=== PATIENT | female | born 1940 | race Caucasian/White ===

== ENCOUNTER → 2016-08-22 | Outpatient (CLI) | payer MEDICARE, OTHER ==
[2015-08-23 13:50] VITALS: BP 150/55
[~2016-08-22] MED LIST: ASPI-482 PO; CALC500T27 PO; CARV3.122 PO; CHOL100013 PO; GABA-586 PO; SIMV20TA3 PO
--- NOTE | 2016-08-22 18:26 | RESP ---
DATE OF SERVICE: 08/22/2016 ATTENDING PHYSICIAN: Dr. Iverson. The patient's FVC was 2.74, which is 85% predicted, FEV1 1.24, which is 51% predicted, the FEV1/FVC ratio was significantly reduced. There was 13% improvement in FVC and 11% improvement in FEV1 post-bronchodilator. Lung volume showed total lung capacity 146% predicted and residual volume 254% predicted. Diffusion capacity 73% predicted. IMPRESSION: 1. Moderate obstructive airway disease. 2. Good response to bronchodilators. 3. Lung volumes consistent with air trapping and hyperinflation. 4. Mildly reduced diffusion capacity. KEEGAN GUERRERO MD DR: VICK/jaylyn JOB#: [id number] / [id number] RAMYA Miranda MD
== END | disposition home or self-care (01) ==
LOC: PF 10:48
PROVIDERS: ATTEND Internal Medicine Pulmonary Disease
DX: R06.02 Shortness of breath (principal)
CPT/HCPCS: 94060; 94729

== ENCOUNTER 2016-08-30 09:51 | Outpatient (CLI) | payer MEDICARE, OTHER ==
[~2016-08-30] VITALS: Ht 172.7 cm; Wt 82.6 kg
[2016-08-30] VITALS (13 sets, daily range): BP systolic 110–153; BP diastolic 52–93
[2016-08-30 10:39] LABS: INR 0.9 (0.8-1.1)
[2016-08-30 10:58] LABS: BASO # 0.1 x10^3/uL (0.0-0.2); BASO % 1 % (0-3); EOS % 5 % (0-3); HEMATOCRIT 47.1 % (36.0-47.0); HEMOGLOBIN 16.4 g/dL (12.0-15.5); LYMPH # 1.9 x10^3/uL (1.0-4.8); LYMPH % 23 % (24-48); MEAN CORPUSCULAR HEMOGLOBIN 29 pg (25-35); MEAN CORPUSCULAR HGB CONC 35 g/dL (31-37); MEAN CORPUSCULAR VOLUME 84 fL (79-100); MONO % 5 % (0-9); NEUT % 67 % (31-73); PLATELET COUNT 260 x10^3/uL (140-400); RED BLOOD COUNT 5.63 x10^6/uL (3.50-5.40); RED CELL DISTRIBUTION WIDTH 14.4 % (11.5-14.5); WHITE BLOOD COUNT 8.6 x10^3/uL (4.0-11.0)
[2016-08-30] MEDS ORDERED: LIDOCAINE 1% / SOD BICARB 8.4% 20 ML VIAL. IJ ONE ×2 (11:12→11:30)
[2016-08-30] MEDS ORDERED: FLUMAZENIL 0.5 MG/5 ML VIAL. IV ONE (11:18)
[2016-08-30] MEDS ORDERED: NALOXONE 0.4 MG/ML VIAL. ONE (11:18)
[2016-08-30] MEDS ORDERED: MIDAZOLAM HCL/PF 2 MG/2 ML VIAL. ONE (11:19)
[2016-08-30] MEDS ORDERED: fentaNYL PF VIAL 100 MCG/2 ML VIAL ONE (11:19)
[2016-08-30] MEDS ORDERED: MIDAZOLAM HCL/PF 2 MG/2 ML VIAL. IV ONE (11:30)
[2016-08-30] MEDS ORDERED: fentaNYL PF VIAL 100 MCG/2 ML VIAL IV ONE (11:30)
--- NOTE | 2016-08-30 12:10 | PDOC ---
MODERATE SEDATION ASSESSMENT RISKS/ALTERNATIVES Risks/Alternatives Risks and alternatives of this type of sedation and procedure discussed with: RISK/ALTERNATIVES: Patient H & P ON CHART H & P H & P on chart and reviewed for co-morbid conditions and appropriate labs. H&P ON CHART: Yes STATUS PREG STATUS ASSESSED: N/A MEDS/ALLERGIES REVIEWED Meds/Allergies Reviewed Medications and Allergies including time and route of recently administered narcotics and sedatives. MEDS/ALLERGIES REVIEWED: Yes ASA RATING ASA RATING: II AIRWAY ASSESSMENT Airway Assessment Airway patency, oral function limitations, presence of caps, crowns, dentures, partials, and ability to extend neck assessed. AIRWAY ASSESSMENT: Yes MALLAMPATI SCORE MALLAMPATI SCORE: II PRE-SEDATION ASSESSMENT PRE-SEDATION ASSESSMENT: Yes SIGIFREDO LAWRENCE MD August 30, 2016 12:10
--- NOTE | 2016-08-30 12:14 | PDOC1 ---
History and Physical Date of Procedure Date of Admission 08/30/[address] guided right apical spiculated lung mass Indication Indication 76 YO female smoker with a 3 cm spiculated, noncalcific right apical lung mass Past Medical History Past Medical History See Nursing Pre Procedure PMH Past Surgical History Past Surgical History See Nursing Pre Procedure PSH Current Medications Current Medications Current Medications Lidocaine/Sodium Bicarbonate (Buffered Lidocaine 1%) 20 ml STK-MED ONCE IJ ; Start 08/30/16 at 11:12; Stop 08/30/16 at 11:13; Status DC Naloxone HCl (Narcan) 0.4 mg STK-MED ONCE .ROUTE ; Start 08/30/16 at 11:18; Stop 08/30/16 at 11:19; Status DC Flumazenil (Romazicon) 0.5 mg STK-MED ONCE IV ; Start 08/30/16 at 11:18; Stop at 11:19; Status DC Fentanyl Citrate (Fentanyl 2ml Vial) 100 mcg STK-MED ONCE .ROUTE ; Start at 11:19; Stop 08/30/16 at 11:20; Status DC Midazolam HCl (Versed) 2 mg STK-MED ONCE .ROUTE ; Start 08/30/16 at 11:19; Stop 08/30/16 at 11:20; Status DC Lidocaine/Sodium Bicarbonate (Buffered Lidocaine 1%) 20 ml 1X ONCE IJ Last administered on 08/30/16 12:03; Start 08/30/16 at 11:30; Stop 08/30/16 at 11:33 ; Status DC Midazolam HCl (Versed) 2 mg 1X ONCE IV Last administered on 08/30/16 12:02; Start 08/30/16 at 11:30; Stop 08/30/16 at 11:33; Status DC Fentanyl Citrate (Fentanyl 2ml Vial) 100 mcg 1X ONCE IV Last administered on 12:03; Start 08/30/16 at 11:30; Stop 08/30/16 at 11:33; Status DC Active Scripts Active Reported Calcium (Calcium Carbonate) 500 Mg Tablet 500 Mg PO DAILY Vitamin D (Cholecalciferol (Vitamin D3)) 1,000 Unit Capsule 1 Cap PO DAILY Aspir 81 (Aspirin) 81 Mg Tablet.dr 1 Tab PO DAILY Gabapentin 300 Mg Capsule 600 Mg PO TID Carvedilol 3.125 Mg Tablet 1 Tab PO BID Simvastatin 20 Mg Tablet 1 Tab PO QHS Allergies Allergies: Coded Allergies: No Known Drug Allergies (Unverified , 07/03/13) Physical Exam Vital Signs Vital Signs Date Time Temp Pulse Resp B/P (MAP) Pulse Ox O2 Delivery O2 Flow Rate FiO2 08/30/16 12:04 58 14 91 Room Air 08/30/16 10:38 98.3 140/64 (89) 98.3 Lungs: Clear to auscultation Heart: Regular rate Psych/Mental Status: Mental status NL Diagnostic Data/Imaging Images [place] CT chest from 08/10/16 reviewed. Assessment Assessment 76 YO female smoker with spiculated right apical lung mass---? bronchogenic carcinoma Problems: Plan Plan CT guided right apical lung mass biopsy SIGIFREDO LAWRENCE MD August 30, 2016 12:14
--- NOTE | 2016-08-30 12:18 | PDOC ---
Exam Hot Packer Hot Packer Ade Compounding Scaler Compounding Scaler Paulina Abraham Pre-Procedure Diagnosis Pre-Procedure Diagnosis 76 YO female smoker with 3 cm, spiculated, noncalcific right apical lung mass--- ? bronchogenic carcinoma Post-Procedure Diagnosis Post-Procedure Diagnosis Same Procedure Performed Procedure Performed CT guided rt apical lung mass bx Type of Anesthesia Type of Anesthesia Local + Mod sedation Estimated Blood Loss EBL: Trace Specimens Specimans 4 18G core bx to path in formalin Condition of Patient Condition of Patient Stable. No apparent complication. No immediate post bx Ptx. Disposition Disposition From IR/CT to CVOBS for recovery. 1 hr post bx Insp/Exp CXR requested. May discharge home post recovery, if no Ptx or other problems. F/u with referring MD. Full report to follow. SIGIFREDO LAWRENCE MD August 30, 2016 12:18
--- NOTE | 2016-08-30 13:30 | RAD ---
Portable chest, 2 views, 08/30/2016: History: Post lung biopsy evaluation AP inspiration and expiration views of the chest were obtained and compared to a study from 05/13/2009. There is an irregular mass in the right apical region, biopsied earlier today. There is a small right apical pneumothorax. No pleural fluid is seen. The heart size is normal. There is calcific plaquing of the aorta and coronary arteries. There is minimal atelectasis or scarring in the left base. A surgical plate and screws is evident in the lower cervical spine. IMPRESSION: 1. Right apical mass. 2. Small right pneumothorax status post right lung biopsy.
--- NOTE | 2016-08-30 14:07 | RAD ---
Indication post lung biopsy. A single view of the chest was obtained at 1400 and is compared to a study one hour earlier. Small right apical pneumothorax persists similar to the previous exam. Known parenchymal mass is noted. A significant change in the appearance of the chest is not seen. IMPRESSION: Persistent small right apical pneumothorax similar to the study one hour earlier
--- NOTE | 2016-08-31 07:13 | RAD ---
CT-guided right lung biopsy Indication: 76-year-old female smoker with large, spiculated, noncalcified right apical lung mass. Probable bronchogenic carcinoma. CT-guided lung biopsy has been requested by pulmonary. Anesthesia: 27 minutes moderate sedation was provided utilizing a total of 1.5 mg Versed and 75 mcg fentanyl, IV. The patient was appropriately monitored by a qualified independent observer throughout the time of moderate sedation. Consent: The procedure was explained in its entirety to the patient and/or the patient's designated warehouse representative by a member of the treatment team. This included a discussion of risks and benefits and acceptable alternatives to the procedure, as well as expected consequences of no treatment at all. Discussion of risks included, but was not limited to, those that are most frequent and those that are rare, but possibly severe or life-threatening, as well as the possibility of unforeseen complications. Procedure: Informed consent was obtained from the patient. She was placed supine on the CT scanner. Preliminary noncontrast CT images confirmed the presence of a 3 cm, spiculated, noncalcified right apical lung mass, with surrounding emphysematous changes. A right anterolateral skin site suitable for CT-guided biopsy was selected and marked. That area was prepped and draped in the usual sterile fashion. Moderate sedation was provided with IV Versed and fentanyl. Using aseptic technique, local anesthesia, and CT guidance, a 17-gauge guide needle was successfully introduced into the right apical lung mass. A total of 4 18-gauge core biopsy samples were obtained. Biopsy material was submitted in formalin to pathology. The biopsy guide needle was removed and a sterile dressing was applied. Patient tolerated the procedure well. Completion CT images revealed a tiny, asymptomatic postbiopsy right apical pneumothorax, as well as postbiopsy blood contained within a right apical bleb. Impression: 1. Successful CT-guided biopsy of right apical spiculated, noncalcified lung mass, as described. 2. Very tiny, asymptomatic postbiopsy apical pneumothorax. 1 hour and 2 hour postbiopsy inspiration/expiration chest x-rays will be obtained in CV observation to exclude pneumothorax progression, prior to patient discharge. RS Compliance Statement: One or more of the following individualized dose reduction techniques was utilized for this procedure: 1. Automated exposure control. 2. Adjustment of MA and/or KV according to patient size. 3. Iterative reconstruction technique.
== END 2016-08-30 14:00 | disposition home or self-care (01) ==
LOC: INTRAD 09:51
PROVIDERS: ATTEND Internal Medicine Pulmonary Disease
DX: R91.8 Other nonspecific abnormal finding of lung field (principal); F17.200 Nicotine dependence, unspecified, uncomplicated
CPT/HCPCS: 32405; 36415; 71010; 71035; 77012; 85027; 85610; J2250; J3010

== ENCOUNTER → 2016-09-06 | Outpatient (CLI) | payer MEDICARE ==
[2016-08-30 13:45] VITALS: BP 132/58
--- NOTE | 2016-09-06 10:19 | RAD ---
PET/CT imaging from the skull through the midthigh History: Lung mass. Comparison: CT images from a chest biopsy 08/30/2016. Technique: PET examination was performed from the skull base to the proximal thighs after intravenous administration of 12.4 mCi Fluorine [address] scan was performed for the purposes of localization and attenuation, not for primary diagnosis. Blood glucose level at time of injection was 125 mg/dl. Findings: No metabolically active lymphadenopathy is identified in the neck, chest, abdomen, or pelvis. The right lung apex demonstrates soft tissue mass measuring about 3.5 cm maximum dimension. This demonstrates maximum SUV of 20.0. Emphysematous changes of lungs are seen. There is mild diffuse thickening of left adrenal gland. Right adrenal gland has normal size. Maximum SUV involving the left adrenal gland is 2.9 although this activity is similar to the contralateral, normal-appearing right adrenal gland and the liver parenchyma demonstrates maximum SUV of 5.0 consequently, this finding is favored to represent left adrenal hyperplasia. The right hepatic lobe demonstrates 1.4 cm low-density lesion without FDG activity, compatible with cyst. Colonic diverticulosis is noted, but no diverticulitis is seen. Vaginal pessary is noted. Impression: 1. Right apical lung mass demonstrates maximum SUV of 20.0, compatible with primary lung malignancy. 2. No evidence of metastatic disease in the neck, chest, abdomen, or pelvis. 3. There is mild thickening of the left adrenal gland which demonstrates mild FDG activity. The activity appears similar to the contralateral, normal-appearing adrenal gland; left adrenal hyperplasia is favored.
== END | disposition home or self-care (01) ==
LOC: PETSC 07:20
PROVIDERS: ATTEND Internal Medicine Pulmonary Disease
DX: R91.8 Other nonspecific abnormal finding of lung field (principal)
CPT/HCPCS: 78815; A9552

== ENCOUNTER → 2016-09-07 | Outpatient (CLI) | payer MEDICARE ==
[2016-08-30 13:45] VITALS: BP 132/58
--- NOTE | 2016-09-07 14:35 | RAD ---
Indication follow-up lung biopsy. Assess for potential pneumothorax. PA and lateral views of the chest were obtained and are compared to an examination 08/30/2016. Known pathology in the right upper lobe is reproduced. Small pneumothorax seen previously has resolved. No acute or unexpected finding is seen. IMPRESSION Resolution of small right pneumothorax seen previously.
== END | disposition home or self-care (01) ==
LOC: RAD 12:09
PROVIDERS: ATTEND Internal Medicine Pulmonary Disease
DX: Z09 Encounter for follow-up examination after completed treatment for conditions other than malignant neoplasm (principal)
CPT/HCPCS: 71020

== ENCOUNTER → 2016-09-21 | Outpatient (CLI) | payer MEDICARE ==
[2016-08-30 13:45] VITALS: BP 132/58
[~2016-09-21] MED LIST changes: -CALC500T27 PO; +CALC500T30 PO; +GADOBUTROL 7.5 MMOL/7.5 ML VIAL IV ONE
--- NOTE | 2016-09-21 12:06 | RAD ---
MRI Brain with and without contrast History: Metastases evaluation, newly diagnosed lung cancer Technique: Axial diffusion, axial gradient echo T2, axial T2, axial FLAIR, sagittal and axial T1, and postcontrast axial, sagittal, and coronal T1-weighted images were acquired of the brain. Contrast: 7.5 cc Gadavist Comparison: None Findings: There is no evidence of recent infarct or cytotoxic edema. The ventricles, sulci, and cisterns are within normal limits in size and configuration. There is no significant midline shift, intraaxial mass effect, or focal abnormal extra-axial fluid collection. There are multiple scattered small foci of T2 and FLAIR hyperintense signal abnormality of the supratentorial white matter bilaterally not associated with enhancement. There is no nodular parenchymal or leptomeningeal enhancement. There is preservation of the major intracranial flow-voids at the skull base. The cerebellar tonsils are normal in location. There is no significant abnormality of the pineal gland or pituitary gland. There is moderate to severe patchy ethmoid air cell mucosal thickening, heoa-ui-lcyytoag frontal sinus and very mild sphenoid sinus mucosal thickening. The mastoid air cells are aerated. There is preserved marrow signal of the clivus. There has been lens surgery bilaterally. Impression: 1. There is no abnormal intracranial enhancement. 2. Scattered T2 and FLAIR hyperintense signal abnormality of the supratentorial white matter is nonspecific although likely due to chronic microvascular ischemic disease. 3. There is paranasal sinus mucosal thickening as stated greatest of the ethmoid air cells. Electronically signed by: Nirav Wynn MD (09/21/2016 12:02 PM)
== END | disposition home or self-care (01) ==
LOC: MRI 10:45
PROVIDERS: ATTEND Thoracic Surgery (Cardiothoracic Vascular Surgery)
DX: J32.2 Chronic ethmoidal sinusitis (principal); C34.91 Malignant neoplasm of unspecified part of right bronchus or lung; R90.82 White matter disease, unspecified
CPT/HCPCS: 70553; A9585

== ENCOUNTER → 2017-01-24 | Outpatient (CLI) | payer MEDICARE ==
[2016-08-30 13:45] VITALS: BP 132/58
[~2017-01-24] MED LIST changes: +GABA600T2 PO; -GADOBUTROL 7.5 MMOL/7.5 ML VIAL IV ONE; +TIOT4MIS2 IH
--- NOTE | 2017-01-24 16:35 | RAD ---
EXAM: CT of the chest without intravenous contrast. HISTORY: Lung cancer status post radiotherapy. TECHNIQUE: Computed tomography of the chest was performed without intravenous contrast. COMPARISON: 09/06/2016. FINDINGS: Images of the upper abdomen reveal a 19 mm hypoattenuating lesion in hepatic segment 6 is consistent with a cyst and is stable. Bone windows reveal no suspicious lesions. Instrumented anterior cervical discectomy and fusion changes are noted. There are no pathologically enlarged mediastinal or axillary lymph nodes. There is no pleural or pericardial effusion. The heart is not enlarged. There is lipomatous hypertrophy of the interatrial septum. There chronic infarct along the interventricular septum, left ventricular apex and left ventricular papillary muscles. Coronary artery bypass grafting changes are noted. A low-density nodule in the right thyroid lobe measures 1.6 cm and is stable. A mass in the right apex has decreased in size since the prior study. It is now partially scarlike and measures approximately 2.4 x 1.4 cm in its solid portion. Previously it measured 3.7 x 2.5 cm. There is adjacent pleural thickening, also decreased. Centrilobular emphysema is moderate to severe in the apices and mild to moderate more inferiorly. IMPRESSION: 1. Interval decrease in size in a right apical mass, now measuring 2.4 x 1.4 cm. No clear regional or distal metastatic disease. 2. Moderate to severe centrilobular emphysema. 3. Chronic left ventricular infarcts as above. *One or more of the following individualized dose reduction techniques were utilized for this examination: 1. Automated exposure control. 2. Adjustment of the mA and/or kV according to patient size. 3. Use of iterative reconstruction technique.
== END | disposition home or self-care (01) ==
LOC: CT 11:38
PROVIDERS: ATTEND Radiology Radiation Oncology
DX: C34.90 Malignant neoplasm of unspecified part of unspecified bronchus or lung (principal); J43.2 Centrilobular emphysema
CPT/HCPCS: 71250

== ENCOUNTER → 2017-04-30 | Outpatient (CLI) | payer MEDICARE | END | disposition home or self-care (01) | LOC: CT 11:11 | DX: C34.90 Malignant neoplasm of unspecified part of unspecified bronchus or lung (principal) | CPT/HCPCS: 71250 ==

== ENCOUNTER → 2017-07-31 | Outpatient (CLI) | payer MEDICARE | END | disposition home or self-care (01) | LOC: CT 11:33 | DX: I25.10 Atherosclerotic heart disease of native coronary artery without angina pectoris (principal); M85.88 Other specified disorders of bone density and structure, other site; Z85.118 Personal history of other malignant neoplasm of bronchus and lung | CPT/HCPCS: 71250 ==

== ENCOUNTER → 2017-11-05 | Outpatient (CLI) | payer MEDICARE | END | disposition home or self-care (01) | LOC: CT 11:24 | DX: J43.8 Other emphysema (principal); I25.10 Atherosclerotic heart disease of native coronary artery without angina pectoris; E78.00 Pure hypercholesterolemia, unspecified; R91.8 Other nonspecific abnormal finding of lung field; Z85.118 Personal history of other malignant neoplasm of bronchus and lung; Z86.000 Personal history of in-situ neoplasm of breast; Z87.891 Personal history of nicotine dependence | CPT/HCPCS: 71250 ==

== ENCOUNTER → 2018-06-04 | Outpatient (CLI) | payer MEDICARE, OTHER ==
[2016-08-30 13:45] VITALS: BP 132/58
[~2018-06-04] MED LIST changes: +CARV3.1210 PO; -CARV3.122 PO; -GABA-586 PO; +GABA300C18 PO; -GABA600T2 PO; +GABA600T7 PO
--- NOTE | 2018-06-04 14:04 | RAD ---
Examination: CT chest without contrast HISTORY: History of follow-up lung cancer Comparison: 11/05/2017 TECHNIQUE: Axial CT images of the chest were performed without contrast. Coronal and sagittal reformats are performed Exposure: One or more of the following individualized dose reduction techniques were utilized for this examination: 1. Automated exposure control 2. Adjustment of the mA and/or kV according to patient size 3. Use of iterative reconstruction technique FINDINGS: There is a solid opacity identified in the right apical lung measuring 2.9 cm which has increased in size compared to prior exam where it measured 2 cm. Severe lung emphysematous changes particularly in the upper lobes. No evidence of pleural effusion or pneumothorax identified. The visualized noncontrasted liver, spleen, adrenals grossly appears unremarkable. IMPRESSION: 1. Interval increase in size of the right apical lung mass now measuring 2.9 cm compared to prior exam where it measured 2 cm , consider follow-up PET-CT scan. 2. Severe lung emphysematous changes. 3. Coronary artery calcifications. Electronically signed by: Bhupinder Smart MD (06/04/2018 2:01 PM) [facility]
== END | disposition home or self-care (01) ==
LOC: CT 14:29
PROVIDERS: ATTEND Radiology Radiation Oncology
DX: C34.11 Malignant neoplasm of upper lobe, right bronchus or lung (principal); J43.9 Emphysema, unspecified; I25.10 Atherosclerotic heart disease of native coronary artery without angina pectoris
CPT/HCPCS: 71250

== ENCOUNTER → 2018-12-03 | Outpatient (CLI) | payer OTHER ==
[2016-08-30 13:45] VITALS: BP 132/58
[~2018-12-03] MED LIST changes: +ALBU2.5V8 INH
--- NOTE | 2018-12-03 15:52 | RAD ---
Examination: CT CHEST WO CONTRAST History: Lung cancer follow-up Comparison/Correlation: 11/05/2017 CT chest without contrast and 06/04/2018 CT chest without contrast Findings: Axial images of chest were obtained without contrast. Sagittal and coronal reformatted images were provided. Sternal wires are present. Postoperative cervical spine fusion noted. No enlarged thoracic lymph nodes. There is no pleural effusion. Centrilobular emphysematous involvement of the lung sanchez is noted. Right apical masslike density is present and similar upon correlation with the previous exam. This extends to abut the pleura laterally. This measures up to 4 cm transverse by 1.7 cm anteroposterior by 1.2 cm longitudinal. Minimal calcification within it is noted. No new masses identified. Right hepatic low-attenuation lesion is present similar to 11/05/2017 CT exam likely representing a cyst. Diverticulosis of the colon noted. Left adrenal gland adenomatous involvement is unchanged. No acute bony process. Impression: No change in right apical mass lesion. No new masses or suspicious infiltrates. Centrilobular emphysema. No suspicious change. PQRS Compliance Statement: One or more of the following individualized dose reduction techniques were utilized for this examination: 1. Automated exposure control 2. Adjustment of the mA and/or kV according to patient size 3. Use of iterative reconstruction technique Electronically signed by: Antonio Chen MD (12/03/2018 3:49 PM) [facility]
== END | disposition home or self-care (01) ==
LOC: CT 12:30
PROVIDERS: ATTEND Radiology Radiation Oncology
DX: C34.11 Malignant neoplasm of upper lobe, right bronchus or lung (principal); J43.2 Centrilobular emphysema; K57.30 Diverticulosis of large intestine without perforation or abscess without bleeding
CPT/HCPCS: 71250

== ENCOUNTER 2019-03-21 03:14 | Inpatient (IN) | payer OTHER ==
[~2019-03-21] VITALS: Ht 170.2 cm; Wt 81.7 kg
[~2019-03-21 03:14] MED LIST changes: +SIMV20TA18 PO; -SIMV20TA3 PO
[2019-03-21] MEDS ORDERED: ASPIRIN CHEWABLE 81 MG TABLET. PO ONE (03:30)
[2019-03-21] MEDS ORDERED: dilTIAZem IV PUSH 25 MG/5 ML VIAL ONE (03:34)
[2019-03-21 03:41] LABS: BASO % 0 % (0-3); EOS % 0 % (0-3); HEMATOCRIT 47.2 % (36.0-47.0); HEMOGLOBIN 15.6 g/dL (12.0-15.5); LYMPH # 1.1 x10^3/uL (1.0-4.8); LYMPH % 11 % (24-48); MEAN CORPUSCULAR HEMOGLOBIN 29 pg (25-35); MEAN CORPUSCULAR HGB CONC 33 g/dL (31-37); MEAN CORPUSCULAR VOLUME 86 fL (79-100); MONO # 0.4 x10^3/uL (0.0-1.1); MONO % 4 % (0-9); NEUT # 7.9 x10^3/uL (1.8-7.7); NEUT % 84 % (31-73); PLATELET COUNT 205 x10^3/uL (140-400); RED BLOOD COUNT 5.47 x10^6/uL (3.50-5.40); RED CELL DISTRIBUTION WIDTH 14.7 % (11.5-14.5); WHITE BLOOD COUNT 9.4 x10^3/uL (4.0-11.0)
[2019-03-21] MEDS ORDERED: dilTIAZem IV PUSH 25 MG/5 ML VIAL IVP ONE (03:45)
[2019-03-21] MEDS ORDERED: dilTIAZem INJ 125 MG in IV DEXTROSE 5% 100ML 100 ML IV PRN (03:45)
[2019-03-21] MEDS ORDERED: MORPHINE SULFATE 2 MG/ML VIAL. IV ONE (03:45)
[2019-03-21] MEDS ORDERED: NITROGLYCERIN OINT 1 GM PACKET. TP ONE (03:45)
--- NOTE | 2019-03-21 04:03 | PHYS DOC ---
Past Medical History Past Medical History: Heart Disease, Other Additional Past Medical Histor: HIGH CHOL Past Surgical History: Coronary Bypass Surgery Alcohol Use: None Drug Use: None Adult General Chief Complaint Chief Complaint: RAPID HEART RATE HPI HPI 78-year-old female sustained emergency Department complaints of chest pain, shortness of breath. She describes the pain as dull center aspect of her chest. She does describe pain behind her ears as well. Denies any nausea, vomiting, cough, fever. History coronary disease and sees cardiology this facility. She states the pain started at some point in time tonight prior to her arrival. Nothing makes her pain worse, nothing makes her pain better. Upon initial evaluation patient presented with sinus tachycardia heart rate in the 130s to 1 50s. She denies any history of atrial fibrillation or other arrhythmia. EKG obtained revealing evidence of ST depression in V3 V4, V5, V6 no evidence of ST elevation OR. Review of Systems Review of Systems Constitutional: Denies fever or chills [] Eyes: Denies change in visual acuity, redness, or eye pain [] HENT: Denies nasal congestion or sore throat [] Respiratory: Denies cough or shortness of breath [] Cardiovascular: No additional information not addressed in HPI [] GI: Denies abdominal pain, nausea, vomiting, bloody stools or diarrhea [] : Denies dysuria or hematuria [] Musculoskeletal: Denies back pain or joint pain [] Integument: Denies rash or skin lesions [] Neurologic: Denies headache, focal weakness or sensory changes [] Endocrine: Denies polyuria or polydipsia [] All other systems were reviewed and found to be within normal limits, except as documented in this note. Current Medications Current Medications Current Medications Medications (Trade) Dose Ordered Sig/[facility] Start Time Stop Time Status Last Admin Dose Admin Aspirin (Children'S Aspirin) 324 mg 1X ONCE 03/21/19 03:30 03/21/19 03:31 DC Digoxin (Lanoxin) 250 mcg 1X ONCE 03/21/19 04:15 03/21/19 04:23 DC 03/21/19 04:21 250 MCG Diltiazem HCl (Cardizem Iv Push) 25 mg STK-MED ONCE 03/21/19 03:34 03/21/19 03:36 DC Diltiazem HCl 125 mg/Dextrose 125 ml @ 5 mls/hr CONT PRN 03/21/19 03:45 03/21/19 03:46 5 MLS/HR Heparin Sodium (Porcine) (Heparin Sodium) 2,000 unit PRN Q6HRS PRN 03/21/19 04:30 Heparin Sodium/ Dextrose 500 ml @ 0 mls/hr CONT PRN 03/21/19 04:30 Morphine Sulfate (Morphine Sulfate) 2 mg 1X ONCE 03/21/19 03:45 03/21/19 03:46 DC Nitroglycerin (Nitro-Bid Oint) 0.5 inch 1X ONCE 03/21/19 03:45 03/21/19 03:46 DC 03/21/19 03:54 0.5 INCH Allergies Allergies Allergies Coded Allergies Type Severity Reaction Last Updated Verified No Known Drug Allergies 07/03/13 No Physical Exam Physical Exam Constitutional: Well developed, well nourished, no acute distress, non-toxic appearance. [] HENT: Normocephalic, atraumatic, bilateral external ears normal, oropharynx moist, no oral exudates, nose normal. [] Eyes: PERRLA, EOMI, conjunctiva normal, no discharge. [] Neck: Normal range of motion, no tenderness, supple, no stridor. [] Cardiovascular:Heart rate regular rhythm, no murmur [] Lungs & Thorax: Bilateral breath sounds clear to auscultation [] Abdomen: Bowel sounds normal, soft, no tenderness, no masses, no pulsatile masses. [] Skin: Warm, dry, no erythema, no rash. [] Back: No tenderness, no CVA tenderness. [] Extremities: No tenderness, no cyanosis, no clubbing, ROM intact, no edema. [] Neurologic: Alert and oriented X 3, normal motor function, normal sensory function, no focal deficits noted. [] Psychologic: Affect normal, judgement normal, mood normal. [] Current Patient Data Vital Signs Vital Signs Date Time Temp Pulse Resp B/P (MAP) Pulse Ox O2 Delivery O2 Flow Rate FiO2 03/21/19 04:21 128 105/61 Lab Values Laboratory Tests Test 03/21/19 03:25 03/21/19 03:39 White Blood Count 9.4 x10^3/uL (4.0-11.0) Red Blood Count 5.47 x10^6/uL (3.50-5.40) H Hemoglobin 15.6 g/dL (12.0-15.5) H Hematocrit 47.2 % (36.0-47.0) H Mean Corpuscular Volume 86 fL (79-100) Mean Corpuscular Hemoglobin 29 pg (25-35) Mean Corpuscular Hemoglobin Concent 33 g/dL (31-37) Red Cell Distribution Width 14.7 % (11.5-14.5) H Platelet Count 205 x10^3/uL (140-400) Neutrophils (%) (Auto) 84 % (31-73) H Lymphocytes (%) (Auto) 11 % (24-48) L Monocytes (%) (Auto) 4 % (0-9) Eosinophils (%) (Auto) 0 % (0-3) Basophils (%) (Auto) 0 % (0-3) Neutrophils # (Auto) 7.9 x10^3/uL (1.8-7.7) H Lymphocytes # (Auto) 1.1 x10^3/uL (1.0-4.8) Monocytes # (Auto) 0.4 x10^3/uL (0.0-1.1) Eosinophils # (Auto) 0.0 x10^3/uL (0.0-0.7) Basophils # (Auto) 0.0 x10^3/uL (0.0-0.2) D-Dimer (María Elena) 0.67 ug/mlFEU (0.00-0.50) H POC Troponin I 0.02 ng/ml (<0.08) Laboratory Tests 03/21/19 03:25 EKG EKG [] Radiology/Procedures Radiology/Procedures [facility] [address] [place] [address] IMAGING REPORT Signed PATIENT: JASPAL BROOKS ACCOUNT: [id number] : 1940 LOCATION: ER AGE: 78 SEX: F EXAM STATUS: REG ER ORD. PHYSICIAN: LYNSEY CRUZ MD REASON: Chest pain PROCEDURE: PORTABLE CHEST 1V EXAM: CHEST 1 VIEW History: Chest pain COMPARISON: None available. TECHNIQUE: Single portable radiograph of the chest FINDINGS: Mild cardiomegaly. Right apical lung scarring changes. Mild bibasilar lung airspace opacities likely atelectasis or infiltrates. IMPRESSION: Mild bibasilar lung airspace opacities likely atelectasis or infiltrates. Electronically signed by: Bhupinder Smart MD (03/21/2019 4:17 AM) [facility] DICTATED and SIGNED BY: BHUPINDER SMART MD DATE: 03/21/19 0417 [] Course & Med Decision Making Course & Med Decision Making Pertinent Labs and Imaging studies reviewed. (See chart for details) []78-year-old female sustained emergency Department complaints of chest pain, shortness of breath. She describes the pain as dull center aspect of her chest. She does describe pain behind her ears as well. Denies any nausea, vomiting, cough, fever. History coronary disease and sees cardiology this facility. She states the pain started at some point in time tonight prior to her arrival. Nothing makes her pain worse, nothing makes her pain better. Upon initial eval uation patient presented with sinus tachycardia heart rate in the 130s to 150s. She denies any history of atrial fibrillation or other arrhythmia. EKG obtained revealing evidence of ST depression in V3 V4, V5, V6 no evidence of ST elevation OR. Labs reviewed Dragon Disclaimer Dragon Disclaimer This electronic medical record was generated, in whole or in part, using a voice recognition dictation system. Departure Departure Referrals: UNKNOWN PCP NAME (PCP) LYNSEY CRUZ MD Mar 21, 2019 04:03
[2019-03-21] MEDS ORDERED: DIGOXIN IV 500 MCG/2 ML AMPUL. IV ONE (04:15)
--- NOTE | 2019-03-21 04:19 | RAD ---
EXAM: CHEST 1 VIEW History: Chest pain COMPARISON: None available. TECHNIQUE: Single portable radiograph of the chest FINDINGS: Mild cardiomegaly. Right apical lung scarring changes. Mild bibasilar lung airspace opacities likely atelectasis or infiltrates. IMPRESSION: Mild bibasilar lung airspace opacities likely atelectasis or infiltrates. Electronically signed by: Bhupinder Smart MD (03/21/2019 4:17 AM) [facility]
[2019-03-21] MEDS ORDERED: HEPARIN for IV BOLUS 10,000 UNIT/10 ML VIAL. IV PRN (04:30)
[2019-03-21] MEDS: HEPARIN 25,000UTS/500ML PREMIX 500 ML IV PRN (05:01)
[2019-03-21] MEDS ORDERED: ONDANSETRON PF 4 MG/2 ML VIAL. IV PRN (05:15)
[2019-03-21] MEDS ORDERED: MORPHINE SULFATE 2 MG/ML VIAL. IV PRN (05:15)
[2019-03-21 05:33] LABS: ANION GAP 5 (6-14); BLOOD UREA NITROGEN 24 mg/dL (7-20); BUN/CREATININE RATIO 22 (6-20); CALCIUM 8.8 mg/dL (8.5-10.1); CARBON DIOXIDE 32 mmol/L (21-32); CHLORIDE 98 mmol/L (98-107); CREATININE 1.1 mg/dL (0.6-1.0); GFR 47.9; GLUCOSE 174 mg/dL (70-99); POTASSIUM 4.3 mmol/L (3.5-5.1); SODIUM 135 mmol/L (136-145)
[2019-03-21 05:39] LABS: ALBUMIN 3.3 g/dL (3.4-5.0); ALBUMIN/GLOBULIN RATIO 0.9 (1.0-1.7); ALK PHOS 85 U/L (46-116); ALT (SGPT) 14 U/L (14-59); MAGNESIUM 2.2 mg/dL (1.8-2.4); TOTAL BILIRUBIN 0.2 mg/dL (0.2-1.0); TOTAL PROTEIN 6.9 g/dL (6.4-8.2)
[2019-03-21 05:40] LABS: AST (SGOT) < 5 U/L (15-37)
[2019-03-21 06:00] VITALS: BP 148/64
--- NOTE | 2019-03-21 07:13 | NUR ---
Pt arrived to room 262 per cart accompanied by family assessment completed vss obtained and stable poc explained call light placed in reach will resume care.
--- NOTE | 2019-03-21 07:17 | NUR ---
Pt cardizem gtt decreased to 5ml and pt converted to sr.will monitor pt.
[2019-03-21] MEDS ORDERED: FLUT1DIS3 (07:24)
[2019-03-21] MEDS ORDERED: PRED20TA (07:24)
--- NOTE | 2019-03-21 08:59 | PDOC1 ---
History and Physical Date of Admission Date of Admission DATE: 03/21/19 TIME: 08:55 Identification/Chief Complaint Chief Complaint Chest pain Source Source: Patient History of Present Illness History of Present Illness Ms Palomares is a 78yo F w/ PMHx CAD s/p CABG who comes in with chest pain the pain as dull center aspect of her chest. She does describe pain behind her ears as well. Denies any nausea, vomiting, cough, fever. History coronary disease and sees cardiology this facility. She states the pain started at some point in time tonight prior to her arrival. Nothing makes her pain worse, nothing makes her pain better. Upon initial evaluation patient presented with sinus tachycardia heart rate in the 130s to 150s. She denies any history of atrial fibrillation or other arrhythmia. EKG obtained revealing evidence of ST depression in V3 V4, V5, V6 no evidence of ST elevation MS. Past Medical History Cardiovascular: CAD, HTN Pulmonary: No pertinent hx GI: No pertinent hx Heme/Onc: No pertinent hx Hepatobiliary: No pertinent hx Psych: No pertinent hx Rheumatologic: No pertinent hx Infectious disease: No pertinent hx ENT: No pertinent hx Renal/: No pertinent hx Endocrine: No pertinent hx Dermatology: No pertinent hx Past Surgical History Past Surgical History: CABG Family History Family History: Heart Disease, High Cholestrol, Hypertension Social History Smoke: No ALCOHOL: none Drugs: None Current Medications Current Medications Current Medications Aspirin (Children'S Aspirin) 324 mg 1X ONCE PO ; Start 03/21/19 at 03:30; Stop 03/21/19 at 03:31; Status DC Diltiazem HCl (Cardizem Iv Push) 10 mg 1X ONCE IVP Last administered on 03/21/19at 03:37; Start 03/21/19 at 03:45; Stop 03/21/19 at 03:46; Status DC Diltiazem HCl 125 mg/Dextrose 125 ml @ 5 mls/hr CONT PRN IV SEE I/O RECORD Last administered on 03/21/19at 03:46; Start 03/21/19 at 03:45 Nitroglycerin (Nitro-Bid Oint) 0.5 inch 1X ONCE TP Last administered on 03/21/19at 03:54; Start 03/21/19 at 03:45; Stop 03/21/19 at 03:46; Status DC Morphine Sulfate (Morphine Sulfate) 2 mg 1X ONCE IV ; Start 03/21/19 at 03:45; Stop 03/21/19 at 03:46; Status DC Diltiazem HCl (Cardizem Iv Push) 25 mg STK-MED ONCE .ROUTE ; Start 03/21/19 at 03:34; Stop 03/21/19 at 03:36; Status DC Digoxin (Lanoxin) 250 mcg 1X ONCE IV Last administered on 03/21/19at 04:21; Start 03/21/19 at 04:15; Stop 03/21/19 at 04:23; Status DC Heparin Sodium/ Dextrose 500 ml @ 0 mls/hr CONT PRN IV SEE COMMENTS Last administered on 03/21/19at 05:01; Start 03/21/19 at 04:30 Heparin Sodium (Porcine) (Heparin Sodium) 2,000 unit PRN Q6HRS PRN IV FOR UFH LEVEL LESS THAN 0.2 Last administered on 03/21/19at 04:58; Start 03/21/19 at 04:30 Ondansetron HCl (Zofran) 4 mg PRN Q8HRS PRN IV NAUSEA/VOMITING; Start 03/21/19 at 05:15; Stop 03/22/19 at 05:14 Morphine Sulfate (Morphine Sulfate) 2 mg PRN Q2HR PRN IV PAIN; Start 03/21/19 at 05:15; Stop 03/22/19 at 05:14 Active Scripts Active Reported Advair 250-50 Diskus (Fluticasone/Salmeterol) 1 Each Disk.w.dev 250 BID MDD 1 Prednisone 20 Mg Tablet 20 Proair Hfa Inhaler (Albuterol Sulfate) 8.5 Gm Hfa.aer.ad 1 Puff INH PRN Q6HRS PRN Gabapentin 600 Mg Tablet 600 Mg PO TID Calcium (Calcium Carbonate) 500 Mg Tablet 500 Mg PO DAILY Vitamin D (Cholecalciferol (Vitamin D3)) 1,000 Unit Capsule 1 Cap PO DAILY Aspir 81 (Aspirin) 81 Mg Tablet.dr 1 Tab PO DAILY Carvedilol (Carvedilol) 3.125 Mg Tablet 1 Tab PO BID Simvastatin 20 Mg Tablet 1 Tab PO QHS Allergies Allergies: Coded Allergies: No Known Drug Allergies (Unverified , 07/03/13) ROS General: YES: Fatigue, Malaise; No: Chills, Night Sweats, Appetite, Other PSYCHOLOGICAL ROS: No: Anxiety, Behavioral Disorder, Concentration difficultie, Decreased libido, Depression, Disorientation, Hallucinations, Hostility, Irritablity, Memory difficulties, Mood Swings, Obsessive thoughts, Physical abuse, Sexual abuse, Sleep disturbances, Suicidal ideation, Other Eyes: No Blurry vision, No Decreased vision, No Double vision, No Dry eyes, No Excessive tearing, No Eye Pain, No Itchy Eyes, No Loss of vision, No Photophobia, No Scotomata, No Uses contacts, No Uses glasses, No Other HEENT: YES: Hearing change; No: Heacaches, Visual Changes, Nasal congestion, Nasal discharge, Oral lesio ns, Sinus pain, Sore Throat, Epistaxis, Sneezing, Snoring, Tinnitus, Vertigo, Vocal changes, Other ALLERGY AND IMMUNOLOGY: No: Hives, Insect Bite Sensitivity, Itchy/Watery Eyes, Nasal Congestion, Post Nasal Drip, Seasonal Allergies, Other Hematological and Lymphatic: No: Bleeding Problems, Blood Clots, Blood Transfusions, Brusing, Night Sweats, Pallor, Swollen Lymph Nodes, Other ENDOCRINE: No: Breast Changes, Galactorrhea, Hair Pattern Changes, Hot Flashes, Malaise/lethargy, Mood Swings, Palpitations, Polydipsia/polyuria, Skin Changes, Temperature Intolerance, Unexpected Weight Changes, Other Breast: No New/Changing Breast Lumps, No Nipple changes, No Nipple discharge, No Other Respiratory: YES: Shortness of breath; No: Cough, Hemoptysis, Orthopnea, Pleuritic Pain, SOB with excertion, Sputum Changes, Stridor, Tachypnea, Wheezing, Other Cardiovascular: yes Chest Pain, yes Palpitations; No Orthopnea, No Paroxysmal Noc. Dyspnea, No Edema, No Lt Headedness, No Other Gastrointestinal: No Nausea, No Vomiting, No Abdominal Pain, No Diarrhea, No Constipation, No Melena, No Hematochezia, No Other Genitourinary: No Dysuria, No Frequency, No Incontinence, No Hematuria, No Retention, No Discharge, No Urgency, No Pain, No Flank Pain, No Other, No , No , No , No , No , No , No Musculoskeletal: No Gait Disturbance, No Joint Pain, No Joint Stiffness, No Joint Swelling, No Muscle Pain, No Muscular Weakness, No Pain In:, No Swelling In:, No Other Neurological: No Behavorial Changes, No Bowel/Bladder ControlChng, No Confusion, No Dizziness, No Gait Disturbance, No Headaches, No Impaired Coord/balance, No Memory Loss, No Numbness/Tingling, No Seizures, No Speech Problems, No Tremors, No Visual Changes, No Weakness, No Other Skin: No Dry Skin, No Eczema, No Hair Changes, No Lumps, No Mole Changes, No Mottling, No Nail Changes, No Pruritus, No Rash, No Skin Lesion Changes, No Other, No Acne Physical Exam General: Alert, Oriented X3, Cooperative, No acute distress HEENT: Atraumatic, PERRLA, EOMI, Mucous membr. moist/pink Lungs: Clear to auscultation, Normal air movement Heart: S1S2, RRR, no thrills, no rubs, no gallops, no murmurs Abdomen: Normal bowel sounds, Soft, No tenderness, No hepatosplenomegaly, No masses Extremities: No clubbing, No cyanosis, No edema, Normal pulses, No tenderness/swelling Skin: No rashes, No breakdown, No significant lesion Neuro: Normal gait, Normal speech, Strength at 5/5 X4 ext, Normal tone, Sens ation intact, Cranial nerves 3-12 NL, Reflexes 2+ Psych/Mental Status: Mental status NL, Mood NL Vitals Vitals Vital Signs Date Time Temp Pulse Resp B/P (MAP) Pulse Ox O2 Delivery O2 Flow Rate FiO2 03/21/19 06:00 97.8 105 20 148/64 (92) 93 Nasal Cannula 2.0 97.8 Labs Labs Laboratory Tests Test 03/21/19 03:25 03/21/19 03:39 03/21/19 05:10 03/21/19 08:00 White Blood Count 9.4 x10^3/uL (4.0-11.0) Red Blood Count 5.47 x10^6/uL (3.50-5.40) Hemoglobin 15.6 g/dL (12.0-15.5) Hematocrit 47.2 % (36.0-47.0) Mean Corpuscular Volume 86 fL (79-100) Mean Corpuscular Hemoglobin 29 pg (25-35) Mean Corpuscular Hemoglobin Concent 33 g/dL (31-37) Red Cell Distribution Width 14.7 % (11.5-14.5) Platelet Count 205 x10^3/uL (140-400) Neutrophils (%) (Auto) 84 % (31-73) Lymphocytes (%) (Auto) 11 % (24-48) Monocytes (%) (Auto) 4 % (0-9) Eosinophils (%) (Auto) 0 % (0-3) Basophils (%) (Auto) 0 % (0-3) Neutrophils # (Auto) 7.9 x10^3/uL (1.8-7.7) Lymphocytes # (Auto) 1.1 x10^3/uL (1.0-4.8) Monocytes # (Auto) 0.4 x10^3/uL (0.0-1.1) Eosinophils # (Auto) 0.0 x10^3/uL (0.0-0.7) Basophils # (Auto) 0.0 x10^3/uL (0.0-0.2) D-Dimer (María Elena) 0.67 ug/mlFEU (0.00-0.50) Bedside Troponin I 0.02 ng/ml (<0.08) Sodium Level 135 mmol/L (136-145) Potassium Level 4.3 mmol/L (3.5-5.1) Chloride Level 98 mmol/L (98-107) Carbon Dioxide Level 32 mmol/L (21-32) Anion Gap 5 (6-14) Blood Urea Nitrogen 24 mg/dL (7-20) Creatinine 1.1 mg/dL (0.6-1.0) Estimated GFR (Cockcroft-Gault) 47.9 BUN/Creatinine Ratio 22 (6-20) Glucose Level 174 mg/dL (70-99) Calcium Level 8.8 mg/dL (8.5-10.1) Magnesium Level 2.2 mg/dL (1.8-2.4) Total Bilirubin 0.2 mg/dL (0.2-1.0) Aspartate Amino Transf (AST/SGOT) < 5 U/L (15-37) Alanine Aminotransferase (ALT/SGPT) 14 U/L (14-59) Alkaline Phosphatase 85 U/L (46-116) Troponin I Quantitative 0.193 ng/mL (0.000-0.055) 0.964 ng/mL (0.000-0.055) XY-Ngw-I-Type Natriuretic Peptide 1880 pg/mL (0-449) Total Protein 6.9 g/dL (6.4-8.2) Albumin 3.3 g/dL (3.4-5.0) Albumin/Globulin Ratio 0.9 (1.0-1.7) Laboratory Tests Test 03/21/19 03:25 03/21/19 03:39 03/21/19 05:10 03/21/19 08:00 White Blood Count 9.4 x10^3/uL (4.0-11.0) Red Blood Count 5.47 x10^6/uL (3.50-5.40) Hemoglobin 15.6 g/dL (12.0-15.5) Hematocrit 47.2 % (36.0-47.0) Mean Corpuscular Volume 86 fL (79-100) Mean Corpuscular Hemoglobin 29 pg (25-35) Mean Corpuscular Hemoglobin Concent 33 g/dL (31-37) Red Cell Distribution Width 14.7 % (11.5-14.5) Platelet Count 205 x10^3/uL (140-400) Neutrophils (%) (Auto) 84 % (31-73) Lymphocytes (%) (Auto) 11 % (24-48) Monocytes (%) (Auto) 4 % (0-9) Eosinophils (%) (Auto) 0 % (0-3) Basophils (%) (Auto) 0 % (0-3) Neutrophils # (Auto) 7.9 x10^3/uL (1.8-7.7) Lymphocytes # (Auto) 1.1 x10^3/uL (1.0-4.8) Monocytes # (Auto) 0.4 x10^3/uL (0.0-1.1) Eosinophils # (Auto) 0.0 x10^3/uL (0.0-0.7) Basophils # (Auto) 0.0 x10^3/uL (0.0-0.2) D-Dimer (María Elena) 0.67 ug/mlFEU (0.00-0.50) Bedside Troponin I 0.02 ng/ml (<0.08) Sodium Level 135 mmol/L (136-145) Potassium Level 4.3 mmol/L (3.5-5.1) Chloride Level 98 mmol/L (98-107) Carbon Dioxide Level 32 mmol/L (21-32) Anion Gap 5 (6-14) Blood Urea Nitrogen 24 mg/dL (7-20) Creatinine 1.1 mg/dL (0.6-1.0) Estimated GFR (Cockcroft-Gault) 47.9 BUN/Creatinine Ratio 22 (6-20) Glucose Level 174 mg/dL (70-99) Calcium Level 8.8 mg/dL (8.5-10.1) Magnesium Level 2.2 mg/dL (1.8-2.4) Total Bilirubin 0.2 mg/dL (0.2-1.0) Aspartate Amino Transf (AST/SGOT) < 5 U/L (15-37) Alanine Aminotransferase (ALT/SGPT) 14 U/L (14-59) Alkaline Phosphatase 85 U/L (46-116) Troponin I Quantitative 0.193 ng/mL (0.000-0.055) 0.964 ng/mL (0.000-0.055) LQ-Lld-E-Type Natriuretic Peptide 1880 pg/mL (0-449) Total Protein 6.9 g/dL (6.4-8.2) Albumin 3.3 g/dL (3.4-5.0) Albumin/Globulin Ratio 0.9 (1.0-1.7) Images Images CXR - mild bilaterl airspace opacities VTE Prophylaxis Ordered VTE Prophylaxis Devices: No VTE Pharmacological Prophylaxi: Yes Assessment/Plan Assessment/Plan A/P: Chest pain - improved with heparin GTT. NSTEMI - troponin at 0.964. Patient is on heparin. 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 Will transition back to her BB. Echo ordered Hypertension - stable, continue medications. Hyperlipidemia - Cont statin Hyperglycemia - 174 on fasting labs this morning. She does not mention history of diabetes. Will check TSH and A1c. Dysuria - UTI present, will treat with empiric rocephin, may have set off afib Otalgia - no effusion or cerumen in ears, will monitor, may be part of her NSTEMi FEN - cardiac diet PPX - heparin GTT FULL CODE Dispo - CVC for NSTEMI, new afib CELSO KIRBY MD Mar 21, 2019 08:59
[2019-03-21] MEDS ORDERED: SALMETEROL INH SCH (09:00)
[2019-03-21] MEDS: GABAPENTIN 300 MG CAPSULE. PO SCH ×3 (09:00→21:51)
[2019-03-21] MEDS ORDERED: FLUTICASONE INH SCH (09:00)
[2019-03-21] MEDS ORDERED: ALBUTEROL SULFATE 2.5 MG/3 ML NEBU. INH PRN (09:00)
--- NOTE | 2019-03-21 10:13 | EKG ---
[facility] [address] [place] [address] Test Date: 2019-03-21 Test Time: 03:21:12 Pat Name: JASPAL BROOKS Department: Room: Gender: F [employer]: : 1940 Requested By: LYNSEY CRUZ Order Number: [id number] Reading MD: Measurements Intervals [place] Rate: 136 P: 24 [place]: 186 QRS: 83 QRSD: 116 T: 156 QT: 242 QTc: 367 Interpretive Statements SINUS TACHYCARDIA ATRIAL PREMATURE COMPLEX(ES) INCOMPLETE RIGHT BUNDLE BRANCH BLOCK RVH WITH REPOLARIZATION ABNORMALITY ABNORMAL ECG RI6.01 No previous ECG available for comparison
[2019-03-21 10:39] VITALS: BP 119/59
--- NOTE | 2019-03-21 11:53 | PDOC2 ---
CONSULT Date of Consult Date of Consult DATE: 03/21/19 TIME: 11:48 Reason for Consult Reason for Consult: Chest pain Referring Physician Referring Physician: Dr. Prasad Identification/Chief Complaint Chief Complaint Chest pain Source Source: Chart review, Patient History of Present Illness Reason for Visit: The patient is a pleasant 78-year-old female who was admitted through the emergency room last evening for episodes of chest pain and shortness of breath. Her initial EKG showed no acute ischemic changes. She was treated with her baseline medications including heparin and this morning reports feeling well. Her pain has resolved. Troponins this morning were elevated at 0.964. Also the patient had episodes of atrial fibrillation last evening at approximately 3 hours which have now converted to a sinus rhythm. BNP is mildly elevated at 1880. Past Medical History Cardiovascular: CAD, CHF, HTN, Hyperlipidemia Past Surgical History Past Surgical History: CABG Family History Family History: Hypertension Social History No ALCOHOL: none Current Medications Current Medications Current Medications Aspirin (Children'S Aspirin) 324 mg 1X ONCE PO ; Start 03/21/19 at 03:30; Stop 03/21/19 at 03:31; Status DC Diltiazem HCl (Cardizem Iv Push) 10 mg 1X ONCE IVP Last administered on 03/21/19at 03:37; Start 03/21/19 at 03:45; Stop 03/21/19 at 03:46; Status DC Diltiazem HCl 125 mg/Dextrose 125 ml @ 5 mls/hr CONT PRN IV SEE I/O RECORD Last administered on 03/21/19at 03:46; Start 03/21/19 at 03:45 Nitroglycerin (Nitro-Bid Oint) 0.5 inch 1X ONCE TP Last administered on 03/21/19at 03:54; Start 03/21/19 at 03:45; Stop 03/21/19 at 03:46; Status DC Morphine Sulfate (Morphine Sulfate) 2 mg 1X ONCE IV ; Start 03/21/19 at 03:45; Stop 03/21/19 at 03:46; Status DC Diltiazem HCl (Cardizem Iv Push) 25 mg STK-MED ONCE .ROUTE ; Start 03/21/19 at 03:34; Stop 03/21/19 at 03:36; Status DC Digoxin (Lanoxin) 250 mcg 1X ONCE IV Last administered on 03/21/19at 04:21; Start 03/21/19 at 04:15; Stop 03/21/19 at 04:23; Status DC Heparin Sodium/ Dextrose 500 ml @ 0 mls/hr CONT PRN IV SEE COMMENTS Last administered on 03/21/19at 05:01; Start 03/21/19 at 04:30 Heparin Sodium (Porcine) (Heparin Sodium) 2,000 unit PRN Q6HRS PRN IV FOR UFH LEVEL LESS THAN 0.2 Last administered on 03/21/19at 04:58; Start 03/21/19 at 04:30 Ondansetron HCl (Zofran) 4 mg PRN Q8HRS PRN IV NAUSEA/VOMITING; Start 03/21/19 at 05:15; Stop 03/22/19 at 05:14 Morphine Sulfate (Morphine Sulfate) 2 mg PRN Q2HR PRN IV PAIN; Start 03/21/19 at 05:15; Stop 03/22/19 at 05:14 Albuterol Sulfate (Ventolin Neb Soln) 2.5 mg PRN Q6HRS PRN INH SHORTNESS OF BREATH; Start 03/21/19 at 09:00 Aspirin (Ecotrin) 81 mg DAILY PO ; Start 03/21/19 at 09:00 Calcium Carbonate/ Glycine (Oscal) 500 mg DAILY PO ; Start 03/21/19 at 09:00 Carvedilol (Coreg) 3.125 mg BIDWMEALS PO ; Start 03/21/19 at 09:00 Atorvastatin Calcium (Lipitor) 10 mg QHS PO ; Start 03/21/19 at 21:00 Vitamin D (Vitamin D3) 1,000 unit DAILY PO ; Start 03/21/19 at 09:00 Non-Formulary Medication (Fluticasone/ Salmeterol (Advair 250-50 Diskus)) 250 mg BID INH ; Start 03/21/19 at 09:00; Status UNV Gabapentin (Neurontin) 600 mg TID PO ; Start 03/21/19 at 09:00 Albuterol Sulfate (Ventolin Neb Soln) 2.5 mg Q6HRS NEB ; Start 03/21/19 at 1 2:00 Budesonide (Pulmicort) 0.5 mg RTBID NEB ; Start 03/21/19 at 10:00 Active Scripts Active Reported Advair 250-50 Diskus (Fluticasone/Salmeterol) 1 Each Disk.w.dev 250 BID MDD 1 Prednisone 20 Mg Tablet 20 Proair Hfa Inhaler (Albuterol Sulfate) 8.5 Gm Hfa.aer.ad 1 Puff INH PRN Q6HRS PRN Gabapentin 600 Mg Tablet 600 Mg PO TID Calcium (Calcium Carbonate) 500 Mg Tablet 500 Mg PO DAILY Vitamin D (Cholecalciferol (Vitamin D3)) 1,000 Unit Capsule 1 Cap PO DAILY Aspir 81 (Aspirin) 81 Mg Tablet.dr 1 Tab PO DAILY Carvedilol (Carvedilol) 3.125 Mg Tablet 1 Tab PO BID Simvastatin 20 Mg Tablet 1 Tab PO QHS Allergies Allergies: Coded Allergies: No Known Drug Allergies (Unverified , 07/03/13) ROS Respiratory: YES: Shortness of breath Cardiovascular: yes Chest Pain Physical Exam General: No acute distress HEENT: Atraumatic Lungs: Other (mildly decreased breath sounds) Heart: Regular rate Vitals VITALS Vital Signs Date Time Temp Pulse Resp B/P (MAP) Pulse Ox O2 Delivery O2 Flow Rate FiO2 03/21/19 10:39 97.8 58 20 119/59 (79) 87 Nasal Cannula 2.0 97.8 Labs Labs Laboratory Tests Test 03/21/19 03:25 03/21/19 03:39 03/21/19 05:10 03/21/19 08:00 White Blood Count 9.4 x10^3/uL (4.0-11.0) Red Blood Count 5.47 x10^6/uL (3.50-5.40) Hemoglobin 15.6 g/dL (12.0-15.5) Hematocrit 47.2 % (36.0-47.0) Mean Corpuscular Volume 86 fL (79-100) Mean Corpuscular Hemoglobin 29 pg (25-35) Mean Corpuscular Hemoglobin Concent 33 g/dL (31-37) Red Cell Distribution Width 14.7 % (11.5-14.5) Platelet Count 205 x10^3/uL (140-400) Neutrophils (%) (Auto) 84 % (31-73) Lymphocytes (%) (Auto) 11 % (24-48) Monocytes (%) (Auto) 4 % (0-9) Eosinophils (%) (Auto) 0 % (0-3) Basophils (%) (Auto) 0 % (0-3) Neutrophils # (Auto) 7.9 x10^3/uL (1.8-7.7) Lymphocytes # (Auto) 1.1 x10^3/uL (1.0-4.8) Monocytes # (Auto) 0.4 x10^3/uL (0.0-1.1) Eosinophils # (Auto) 0.0 x10^3/uL (0.0-0.7) Basophils # (Auto) 0.0 x10^3/uL (0.0-0.2) D-Dimer (María Elena) 0.67 ug/mlFEU (0.00-0.50) Bedside Troponin I 0.02 ng/ml (<0.08) Sodium Level 135 mmol/L (136-145) Potassium Level 4.3 mmol/L (3.5-5.1) Chloride Level 98 mmol/L (98-107) Carbon Dioxide Level 32 mmol/L (21-32) Anion Gap 5 (6-14) Blood Urea Nitrogen 24 mg/dL (7-20) Creatinine 1.1 mg/dL (0.6-1.0) Estimated GFR (Cockcroft-Gault) 47.9 BUN/Creatinine Ratio 22 (6-20) Glucose Level 174 mg/dL (70-99) Calcium Level 8.8 mg/dL (8.5-10.1) Magnesium Level 2.2 mg/dL (1.8-2.4) Total Bilirubin 0.2 mg/dL (0.2-1.0) Aspartate Amino Transf (AST/SGOT) < 5 U/L (15-37) Alanine Aminotransferase (ALT/SGPT) 14 U/L (14-59) Alkaline Phosphatase 85 U/L (46-116) Troponin I Quantitative 0.193 ng/mL (0.000-0.055) 0.964 ng/mL (0.000-0.055) AD-Vhs-X-Type Natriuretic Peptide 1880 pg/mL (0-449) Total Protein 6.9 g/dL (6.4-8.2) Albumin 3.3 g/dL (3.4-5.0) Albumin/Globulin Ratio 0.9 (1.0-1.7) Test 03/21/19 11:00 Troponin I Quantitative 2.700 ng/mL (0.000-0.055) Laboratory Tests Test 03/21/19 03:25 03/21/19 03:39 03/21/19 05:10 03/21/19 08:00 White Blood Count 9.4 x10^3/uL (4.0-11.0) Red Blood Count 5.47 x10^6/uL (3.50-5.40) Hemoglobin 15.6 g/dL (12.0-15.5) Hematocrit 47.2 % (36.0-47.0) Mean Corpuscular Volume 86 fL (79-100) Mean Corpuscular Hemoglobin 29 pg (25-35) Mean Corpuscular Hemoglobin Concent 33 g/dL (31-37) Red Cell Distribution Width 14.7 % (11.5-14.5) Platelet Count 205 x10^3/uL (140-400) Neutrophils (%) (Auto) 84 % (31-73) Lymphocytes (%) (Auto) 11 % (24-48) Monocytes (%) (Auto) 4 % (0-9) Eosinophils (%) (Auto) 0 % (0-3) Basophils (%) (Auto) 0 % (0-3) Neutrophils # (Auto) 7.9 x10^3/uL (1.8-7.7) Lymphocytes # (Auto) 1.1 x10^3/uL (1.0-4.8) Monocytes # (Auto) 0.4 x10^3/uL (0.0-1.1) Eosinophils # (Auto) 0.0 x10^3/uL (0.0-0.7) Basophils # (Auto) 0.0 x10^3/uL (0.0-0.2) D-Dimer (María Elena) 0.67 ug/mlFEU (0.00-0.50) Bedside Troponin I 0.02 ng/ml (<0.08) Sodium Level 135 mmol/L (136-145) Potassium Level 4.3 mmol/L (3.5-5.1) Chloride Level 98 mmol/L (98-107) Carbon Dioxide Level 32 mmol/L (21-32) Anion Gap 5 (6-14) Blood Urea Nitrogen 24 mg/dL (7-20) Creatinine 1.1 mg/dL (0.6-1.0) Estimated GFR (Cockcroft-Gault) 47.9 BUN/Creatinine Ratio 22 (6-20) Glucose Level 174 mg/dL (70-99) Calcium Level 8.8 mg/dL (8.5-10.1) Magnesium Level 2.2 mg/dL (1.8-2.4) Total Bilirubin 0.2 mg/dL (0.2-1.0) Aspartate Amino Transf (AST/SGOT) < 5 U/L (15-37) Alanine Aminotransferase (ALT/SGPT) 14 U/L (14-59) Alkaline Phosphatase 85 U/L (46-116) Troponin I Quantitative 0.193 ng/mL (0.000-0.055) 0.964 ng/mL (0.000-0.055) HZ-Cau-V-Type Natriuretic Peptide 1880 pg/mL (0-449) Total Protein 6.9 g/dL (6.4-8.2) Albumin 3.3 g/dL (3.4-5.0) Albumin/Globulin Ratio 0.9 (1.0-1.7) Test 03/21/19 11:00 Troponin I Quantitative 2.700 ng/mL (0.000-0.055) Images Images Chest x-ray with mild bilateral airspace opacities. Assessment/Plan Assessment/Plan 1. Chest pain. Now resolved. Morning troponin at 0.964. Patient is on heparin. We'll continue to rule out for myocardial infarction. The patient has a history of bypass surgery. Last catheterization in August 2015 showed one patent graft. 2. Episode of atrial fibrillation. Now resolved. We'll continue to monitor. Will consider future anticoagulation based on her clinical course. 3. Hypertension. Under better control continue medications. 4. Hyperlipidemia. Continue statins and monitor lab. Thank you for allowing us to participate in the care of your patient. CINTHIA PEDRO MD Mar 21, 2019 11:53
[2019-03-21] MEDS: ALBUTEROL SULFATE 2.5 MG/3 ML NEBU. NEB SCH ×2 (13:01→20:49)
[2019-03-21] MEDS: BUDESONIDE 0.5 MG/2 ML NEBU. NEB SCH ×2 (13:01→20:49)
[2019-03-21] MEDS: CHOLECALCIFEROL (VITAMIN D3) 1,000 UNIT TABLET PO SCH (13:30)
[2019-03-21] MEDS: CALCIUM CARBONATE 500 MG TABLET PO SCH (13:30)
[2019-03-21] MEDS: CARVEDILOL 3.125 MG TABLET. PO SCH ×2 (13:30→17:06)
[2019-03-21] MEDS: ASPIRIN ENTERIC COATED 81 MG TABLET.DR. PO SCH (13:30)
[2019-03-21 14:36] VITALS: BP 124/60
[2019-03-21 15:01] LABS: BILIRUBIN,URINE NEGATIVE (NEG); CLARITY,URINE CLOUDY; COLOR,URINE YELLOW; NITRITE,URINE POSITIVE (NEG); PROTEIN,URINE NEGATIVE (NEG-TRACE); UROBILINOGEN,URINE 0.2 mg/dL (0.2 mg/dL)
[2019-03-21 15:07] LABS: BACTERIA,URINE MANY /HPF (0-FEW); RBC,URINE OCC /HPF (0-2); SQUAMOUS EPITHELIAL CELL,UR MANY /LPF
[2019-03-21] MEDS ORDERED: ANTI-COAG MONITOR BY PHARMACY. MC PRN (15:30)
[2019-03-21] MEDS ORDERED: WARFARIN 4 MG TABLET. PO SCH (16:00)
[2019-03-21 16:05] LABS: PROTHROMBIN TIME PATIENT 13.5 SEC (11.7-14.0)
--- NOTE | 2019-03-21 16:33 | NUR ---
Pharmacy Warfarin Dosing Note S:Pharmacy consulted to assist with anticoagulation therapy started with target INR: 2 -3 O:JASPAL BROOKS is a 78 year old F with Atrial Fibrillation Post DE NSTEMI LABS: Last INR: 1.1 Last HGB: 15.6 Last HCT: 47.2 Last PLT: 205 Last dose of given on at Previous Regimen: Vitamin K given: Drug Interaction Changes: Ongoing Drug Interactions: A:INR of 1.1 is below desired range. Target range for this patient is: 2 -3 P: Warfarin dose: 7.5 mg Today at 1600 Bridge Therapy: Heparin Therapeutic CONT Next INR due 03/22/19 Pharmacy anticoagulation service will continue to follow. NIDHI AMANDA [facility], 03/21/19 [id number]
[2019-03-21] MEDS ORDERED: WARFARIN 7.5 MG TABLET. PO ONE (17:00)
[2019-03-21] MEDS: cefTRIAXone IV Push 1 GM VIAL. IVP SCH (17:05)
[2019-03-21 19:10] VITALS: BP 134/62
[2019-03-21] MEDS: ATORVASTATIN CALCIUM 10 MG TABLET. PO SCH (21:50)
[2019-03-21 23:05] VITALS: BP 127/58
[2019-03-22 03:00] VITALS: BP 137/65
[2019-03-22 03:43] LABS: BASO # 0.1 x10^3/uL (0.0-0.2); BASO % 1 % (0-3); EOS # 0.3 x10^3/uL (0.0-0.7); EOS % 4 % (0-3); HEMATOCRIT 42.4 % (36.0-47.0); HEMOGLOBIN 13.9 g/dL (12.0-15.5); LYMPH # 2.1 x10^3/uL (1.0-4.8); LYMPH % 28 % (24-48); MEAN CORPUSCULAR HEMOGLOBIN 28 pg (25-35); MEAN CORPUSCULAR HGB CONC 33 g/dL (31-37); MEAN CORPUSCULAR VOLUME 86 fL (79-100); MONO # 0.4 x10^3/uL (0.0-1.1); MONO % 6 % (0-9); NEUT # 4.5 x10^3/uL (1.8-7.7); NEUT % 61 % (31-73); PLATELET COUNT 181 x10^3/uL (140-400); RED BLOOD COUNT 4.93 x10^6/uL (3.50-5.40); RED CELL DISTRIBUTION WIDTH 14.6 % (11.5-14.5); WHITE BLOOD COUNT 7.4 x10^3/uL (4.0-11.0)
[2019-03-22 04:00] LABS: ALBUMIN 2.6 g/dL (3.4-5.0); ALBUMIN/GLOBULIN RATIO 0.8 (1.0-1.7); CALCIUM 8.6 mg/dL (8.5-10.1); GFR 53.5; POTASSIUM 4.1 mmol/L (3.5-5.1); TOTAL BILIRUBIN 0.3 mg/dL (0.2-1.0); TOTAL PROTEIN 5.8 g/dL (6.4-8.2)
[2019-03-22 07:00] VITALS: BP 156/67
[2019-03-22] MEDS: CARVEDILOL 3.125 MG TABLET. PO SCH ×2 (08:00→18:09)
[2019-03-22] MEDS: BUDESONIDE 0.5 MG/2 ML NEBU. NEB SCH ×2 (08:10→21:07)
[2019-03-22] MEDS: ALBUTEROL SULFATE 2.5 MG/3 ML NEBU. NEB SCH ×4 (08:10→18:00)
[2019-03-22] MEDS: ASPIRIN ENTERIC COATED 81 MG TABLET.DR. PO SCH (08:53)
[2019-03-22] MEDS: CALCIUM CARBONATE 500 MG TABLET PO SCH (08:53)
[2019-03-22] MEDS: CHOLECALCIFEROL (VITAMIN D3) 1,000 UNIT TABLET PO SCH (08:53)
[2019-03-22] MEDS: GABAPENTIN 300 MG CAPSULE. PO SCH ×2 (09:00→14:00)
--- NOTE | 2019-03-22 09:17 | PDOC ---
PROGRESS NOTES Chief Complaint Chief Complaint A/P: Chest pain - improved with heparin GTT. NSTEMI - troponin at 0.964. Patient is on heparin. 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 Will transition back to her BB. Echo ordered Hypertension - stable, continue medications. Hyperlipidemia - Cont statin Hyperglycemia - 174 on fasting labs this morning. She does not mention history of diabetes. Will check TSH and A1c. Dysuria - UTI present, will treat with empiric rocephin, may have set off afib Otalgia - no effusion or cerumen in ears, will monitor, may be part of her NSTEMi FEN - cardiac diet PPX - heparin GTT FULL CODE Dispo - CVC for NSTEMI, new afib History of Present Illness History of Present Illness Ms Palomares is a 78yo F w/ PMHx CAD s/p CABG who comes in with chest pain the pain as dull center aspect of her chest. She does describe pain behind her ears as well. Denies any nausea, vomiting, cough, fever. History coronary disease and sees cardiology this facility. She states the pain started at some point in time tonight prior to her arrival. Nothing makes her pain worse, nothing makes her pain better. Upon initial evaluation patient presented with sinus tachycardia heart rate in the 130s to 150s. She denies any history of atrial fibrillation or other arrhythmia. EKG obtained revealing evidence of ST depression in V3 V4, V5, V6 no evidence of ST elevation CT. Troponin further elevated this morning 2.7-->3.5. She is c/o shortness of breath and wheezing. No or GI complaints. Vitals Vitals Vital Signs Date Time Temp Pulse Resp B/P (MAP) Pulse Ox O2 Delivery O2 Flow Rate FiO2 03/22/19 08:12 92 Nasal Cannula 1.0 03/22/19 07:00 97.9 43 22 156/67 (96) 97.9 Physical Exam General: Alert, Oriented X3, Cooperative, No acute distress Heart: Regular rate Abdomen: Normal bowel sounds, Soft, No tenderness, No hepatosplenomegaly, No masses Extremities: No clubbing, No cyanosis, No edema, Normal pulses, No tenderness/swelling Skin: No rashes, No breakdown, No significant lesion Labs LABS Laboratory Tests Test 03/21/19 11:00 03/21/19 14:53 03/21/19 19:30 03/22/19 03:15 Prothrombin Time 13.5 SEC (11.7-14.0) 13.0 SEC (11.7-14.0) Prothromb Time International Ratio 1.1 (0.8-1.1) 1.0 (0.8-1.1) Heparin Anti-Xa Act, Unfractionated 0.27 IU/mL (0.30-0.70) 0.65 IU/mL (0.30-0.70) 0.63 IU/mL (0.30-0.70) Troponin I Quantitative 2.700 ng/mL (0.000-0.055) Urine Collection Type Unknown Urine Color Yellow Urine Clarity Cloudy Urine pH 6.0 Urine Specific Bailey 1.015 Urine Protein Negative mg/dL (NEG-TRACE) Urine Glucose (UA) Negative mg/dL (NEG) Urine Ketones (Stick) Negative mg/dL (NEG) Urine Blood Moderate (NEG) Urine Nitrite Positive (NEG) Urine Bilirubin Negative (NEG) Urine Urobilinogen Dipstick 0.2 mg/dL (0.2 mg/dL) Urine Leukocyte Esterase Moderate (NEG) Urine RBC Occ /HPF (0-2) Urine WBC 11-20 /HPF (0-4) Urine Squamous Epithelial Cells Many /LPF Urine Bacteria Many /HPF (0-FEW) White Blood Count 7.4 x10^3/uL (4.0-11.0) Red Blood Count 4.93 x10^6/uL (3.50-5.40) Hemoglobin 13.9 g/dL (12.0-15.5) Hematocrit 42.4 % (36.0-47.0) Mean Corpuscular Volume 86 fL (79-100) Mean Corpuscular Hemoglobin 28 pg (25-35) Mean Corpuscular Hemoglobin Concent 33 g/dL (31-37) Red Cell Distribution Width 14.6 % (11.5-14.5) Platelet Count 181 x10^3/uL (140-400) Neutrophils (%) (Auto) 61 % (31-73) Lymphocytes (%) (Auto) 28 % (24-48) Monocytes (%) (Auto) 6 % (0-9) Eosinophils (%) (Auto) 4 % (0-3) Basophils (%) (Auto) 1 % (0-3) Neutrophils # (Auto) 4.5 x10^3/uL (1.8-7.7) Lymphocytes # (Auto) 2.1 x10^3/uL (1.0-4.8) Monocytes # (Auto) 0.4 x10^3/uL (0.0-1.1) Eosinophils # (Auto) 0.3 x10^3/uL (0.0-0.7) Basophils # (Auto) 0.1 x10^3/uL (0.0-0.2) Sodium Level 139 mmol/L (136-145) Potassium Level 4.1 mmol/L (3.5-5.1) Chloride Level 101 mmol/L (98-107) Carbon Dioxide Level 30 mmol/L (21-32) Anion Gap 8 (6-14) Blood Urea Nitrogen 25 mg/dL (7-20) Creatinine 1.0 mg/dL (0.6-1.0) Estimated GFR (Cockcroft-Gault) 53.5 BUN/Creatinine Ratio 25 (6-20) Glucose Level 117 mg/dL (70-99) Calcium Level 8.6 mg/dL (8.5-10.1) Total Bilirubin 0.3 mg/dL (0.2-1.0) Aspartate Amino Transf (AST/SGOT) 34 U/L (15-37) Alanine Aminotransferase (ALT/SGPT) 15 U/L (14-59) Alkaline Phosphatase 65 U/L (46-116) Total Protein 5.8 g/dL (6.4-8.2) Albumin 2.6 g/dL (3.4-5.0) Albumin/Globulin Ratio 0.8 (1.0-1.7) Thyroid Stimulating Hormone (TSH) 1.017 uIU/mL (0.358-3.74) Comment Review of Relevant I have reviewed the following items fernando (where applicable) has been applied. Labs Laboratory Tests Test 03/21/19 03:25 03/21/19 03:39 03/21/19 05:10 03/21/19 08:00 White Blood Count 9.4 x10^3/uL (4.0-11.0) Red Blood Count 5.47 x10^6/uL (3.50-5.40) Hemoglobin 15.6 g/dL (12.0-15.5) Hematocrit 47.2 % (36.0-47.0) Mean Corpuscular Volume 86 fL (79-100) Mean Corpuscular Hemoglobin 29 pg (25-35) Mean Corpuscular Hemoglobin Concent 33 g/dL (31-37) Red Cell Distribution Width 14.7 % (11.5-14.5) Platelet Count 205 x10^3/uL (140-400) Neutrophils (%) (Auto) 84 % (31-73) Lymphocytes (%) (Auto) 11 % (24-48) Monocytes (%) (Auto) 4 % (0-9) Eosinophils (%) (Auto) 0 % (0-3) Basophils (%) (Auto) 0 % (0-3) Neutrophils # (Auto) 7.9 x10^3/uL (1.8-7.7) Lymphocytes # (Auto) 1.1 x10^3/uL (1.0-4.8) Monocytes # (Auto) 0.4 x10^3/uL (0.0-1.1) Eosinophils # (Auto) 0.0 x10^3/uL (0.0-0.7) Basophils # (Auto) 0.0 x10^3/uL (0.0-0.2) D-Dimer (María Elena) 0.67 ug/mlFEU (0.00-0.50) Bedside Troponin I 0.02 ng/ml (<0.08) Sodium Level 135 mmol/L (136-145) Potassium Level 4.3 mmol/L (3.5-5.1) Chloride Level 98 mmol/L (98-107) Carbon Dioxide Level 32 mmol/L (21-32) Anion Gap 5 (6-14) Blood Urea Nitrogen 24 mg/dL (7-20) Creatinine 1.1 mg/dL (0.6-1.0) Estimated GFR (Cockcroft-Gault) 47.9 BUN/Creatinine Ratio 22 (6-20) Glucose Level 174 mg/dL (70-99) Calcium Level 8.8 mg/dL (8.5-10.1) Magnesium Level 2.2 mg/dL (1.8-2.4) Total Bilirubin 0.2 mg/dL (0.2-1.0) Aspartate Amino Transf (AST/SGOT) < 5 U/L (15-37) Alanine Aminotransferase (ALT/SGPT) 14 U/L (14-59) Alkaline Phosphatase 85 U/L (46-116) Troponin I Quantitative 0.193 ng/mL (0.000-0.055) 0.964 ng/mL (0.000-0.055) RJ-Vnj-J-Type Natriuretic Peptide 1880 pg/mL (0-449) Total Protein 6.9 g/dL (6.4-8.2) Albumin 3.3 g/dL (3.4-5.0) Albumin/Globulin Ratio 0.9 (1.0-1.7) Test 03/21/19 11:00 03/21/19 14:53 03/21/19 19:30 03/22/19 03:15 Prothrombin Time 13.5 SEC (11.7-14.0) 13.0 SEC (11.7-14.0) Prothromb Time International Ratio 1.1 (0.8-1.1) 1.0 (0.8-1.1) Heparin Anti-Xa Act, Unfractionated 0.27 IU/mL (0.30-0.70) 0.65 IU/mL (0.30-0.70) 0.63 IU/mL (0.30-0.70) Troponin I Quantitative 2.700 ng/mL (0.000-0.055) Urine Collection Type Unknown Urine Color Yellow Urine Clarity Cloudy Urine pH 6.0 Urine Specific Bailey 1.015 Urine Protein Negative mg/dL (NEG-TRACE) Urine Glucose (UA) Negative mg/dL (NEG) Urine Ketones (Stick) Negative mg/dL (NEG) Urine Blood Moderate (NEG) Urine Nitrite Positive (NEG) Urine Bilirubin Negative (NEG) Urine Urobilinogen Dipstick 0.2 mg/dL (0.2 mg/dL) Urine Leukocyte Esterase Moderate (NEG) Urine RBC Occ /HPF (0-2) Urine WBC 11-20 /HPF (0-4) Urine Squamous Epithelial Cells Many /LPF Urine Bacteria Many /HPF (0-FEW) White Blood Count 7.4 x10^3/uL (4.0-11.0) Red Blood Count 4.93 x10^6/uL (3.50-5.40) Hemoglobin 13.9 g/dL (12.0-15.5) Hematocrit 42.4 % (36.0-47.0) Mean Corpuscular Volume 86 fL (79-100) Mean Corpuscular Hemoglobin 28 pg (25-35) Mean Corpuscular Hemoglobin Concent 33 g/dL (31-37) Red Cell Distribution Width 14.6 % (11.5-14.5) Platelet Count 181 x10^3/uL (140-400) Neutrophils (%) (Auto) 61 % (31-73) Lymphocytes (%) (Auto) 28 % (24-48) Monocytes (%) (Auto) 6 % (0-9) Eosinophils (%) (Auto) 4 % (0-3) Basophils (%) (Auto) 1 % (0-3) Neutrophils # (Auto) 4.5 x10^3/uL (1.8-7.7) Lymphocytes # (Auto) 2.1 x10^3/uL (1.0-4.8) Monocytes # (Auto) 0.4 x10^3/uL (0.0-1.1) Eosinophils # (Auto) 0.3 x10^3/uL (0.0-0.7) Basophils # (Auto) 0.1 x10^3/uL (0.0-0.2) Sodium Level 139 mmol/L (136-145) Potassium Level 4.1 mmol/L (3.5-5.1) Chloride Level 101 mmol/L (98-107) Carbon Dioxide Level 30 mmol/L (21-32) Anion Gap 8 (6-14) Blood Urea Nitrogen 25 mg/dL (7-20) Creatinine 1.0 mg/dL (0.6-1.0) Estimated GFR (Cockcroft-Gault) 53.5 BUN/Creatinine Ratio 25 (6-20) Glucose Level 117 mg/dL (70-99) Calcium Level 8.6 mg/dL (8.5-10.1) Total Bilirubin 0.3 mg/dL (0.2-1.0) Aspartate Amino Transf (AST/SGOT) 34 U/L (15-37) Alanine Aminotransferase (ALT/SGPT) 15 U/L (14-59) Alkaline Phosphatase 65 U/L (46-116) Total Protein 5.8 g/dL (6.4-8.2) Albumin 2.6 g/dL (3.4-5.0) Albumin/Globulin Ratio 0.8 (1.0-1.7) Thyroid Stimulating Hormone (TSH) 1.017 uIU/mL (0.358-3.74) Laboratory Tests Test 03/21/19 11:00 03/21/19 14:53 03/21/19 19:30 03/22/19 03:15 Prothrombin Time 13.5 SEC (11.7-14.0) 13.0 SEC (11.7-14.0) Prothromb Time International Ratio 1.1 (0.8-1.1) 1.0 (0.8-1.1) Heparin Anti-Xa Act, Unfractionated 0.27 IU/mL (0.30-0.70) 0.65 IU/mL (0.30-0.70) 0.63 IU/mL (0.30-0.70) Troponin I Quantitative 2.700 ng/mL (0.000-0.055) Urine Collection Type Unknown Urine Color Yellow Urine Clarity Cloudy Urine pH 6.0 Urine Specific Bailey 1.015 Urine Protein Negative mg/dL (NEG-TRACE) Urine Glucose (UA) Negative mg/dL (NEG) Urine Ketones (Stick) Negative mg/dL (NEG) Urine Blood Moderate (NEG) Urine Nitrite Positive (NEG) Urine Bilirubin Negative (NEG) Urine Urobilinogen Dipstick 0.2 mg/dL (0.2 mg/dL) Urine Leukocyte Esterase Moderate (NEG) Urine RBC Occ /HPF (0-2) Urine WBC 11-20 /HPF (0-4) Urine Squamous Epithelial Cells Many /LPF Urine Bacteria Many /HPF (0-FEW) White Blood Count 7.4 x10^3/uL (4.0-11.0) Red Blood Count 4.93 x10^6/uL (3.50-5.40) Hemoglobin 13.9 g/dL (12.0-15.5) Hematocrit 42.4 % (36.0-47.0) Mean Corpuscular Volume 86 fL (79-100) Mean Corpuscular Hemoglobin 28 pg (25-35) Mean Corpuscular Hemoglobin Concent 33 g/dL (31-37) Red Cell Distribution Width 14.6 % (11.5-14.5) Platelet Count 181 x10^3/uL (140-400) Neutrophils (%) (Auto) 61 % (31-73) Lymphocytes (%) (Auto) 28 % (24-48) Monocytes (%) (Auto) 6 % (0-9) Eosinophils (%) (Auto) 4 % (0-3) Basophils (%) (Auto) 1 % (0-3) Neutrophils # (Auto) 4.5 x10^3/uL (1.8-7.7) Lymphocytes # (Auto) 2.1 x10^3/uL (1.0-4.8) Monocytes # (Auto) 0.4 x10^3/uL (0.0-1.1) Eosinophils # (Auto) 0.3 x10^3/uL (0.0-0.7) Basophils # (Auto) 0.1 x10^3/uL (0.0-0.2) Sodium Level 139 mmol/L (136-145) Potassium Level 4.1 mmol/L (3.5-5.1) Chloride Level 101 mmol/L (98-107) Carbon Dioxide Level 30 mmol/L (21-32) Anion Gap 8 (6-14) Blood Urea Nitrogen 25 mg/dL (7-20) Creatinine 1.0 mg/dL (0.6-1.0) Estimated GFR (Cockcroft-Gault) 53.5 BUN/Creatinine Ratio 25 (6-20) Glucose Level 117 mg/dL (70-99) Calcium Level 8.6 mg/dL (8.5-10.1) Total Bilirubin 0.3 mg/dL (0.2-1.0) Aspartate Amino Transf (AST/SGOT) 34 U/L (15-37) Alanine Aminotransferase (ALT/SGPT) 15 U/L (14-59) Alkaline Phosphatase 65 U/L (46-116) Total Protein 5.8 g/dL (6.4-8.2) Albumin 2.6 g/dL (3.4-5.0) Albumin/Globulin Ratio 0.8 (1.0-1.7) Thyroid Stimulating Hormone (TSH) 1.017 uIU/mL (0.358-3.74) Medications Current Medications Aspirin (Children'S Aspirin) 324 mg 1X ONCE PO ; Start 03/21/19 at 03:30; Stop 03/21/19 at 03:31; Status DC Diltiazem HCl (Cardizem Iv Push) 10 mg 1X ONCE IVP Last administered on 03/21/19at 03:37; Start 03/21/19 at 03:45; Stop 03/21/19 at 03:46; Status DC Diltiazem HCl 125 mg/Dextrose 125 ml @ 5 mls/hr CONT PRN IV SEE I/O RECORD Last administered on 03/21/19at 03:46; Start 03/21/19 at 03:45; Stop 03/21/19 at 16:44; Status DC Nitroglycerin (Nitro-Bid Oint) 0.5 inch 1X ONCE TP Last administered on 03/21/19at 03:54; Start 03/21/19 at 03:45; Stop 03/21/19 at 03:46; Status DC Morphine Sulfate (Morphine Sulfate) 2 mg 1X ONCE IV ; Start 03/21/19 at 03:45; Stop 03/21/19 at 03:46; Status DC Diltiazem HCl (Cardizem Iv Push) 25 mg STK-MED ONCE .ROUTE ; Start 03/21/19 at 03:34; Stop 03/21/19 at 03:36; Status DC Digoxin (Lanoxin) 250 mcg 1X ONCE IV Last administered on 03/21/19at 04:21; Start 03/21/19 at 04:15; Stop 03/21/19 at 04:23; Status DC Heparin Sodium/ Dextrose 500 ml @ 0 mls/hr CONT PRN IV SEE COMMENTS Last administered on 03/21/19at 05:01; Start 03/21/19 at 04:30 Heparin Sodium (Porcine) (Heparin Sodium) 2,000 unit PRN Q6HRS PRN IV FOR UFH LEVEL LESS THAN 0.2 Last administered on 03/21/19at 04:58; Start 03/21/19 at 04:30 Ondansetron HCl (Zofran) 4 mg PRN Q8HRS PRN IV NAUSEA/VOMITING; Start 03/21/19 at 05:15; Stop 03/22/19 at 05:14; Status DC Morphine Sulfate (Morphine Sulfate) 2 mg PRN Q2HR PRN IV PAIN; Start 03/21/19 at 05:15; Stop 03/22/19 at 05:14; Status DC Albuterol Sulfate (Ventolin Neb Soln) 2.5 mg PRN Q6HRS PRN INH SHORTNESS OF BREATH; Start 03/21/19 at 09:00 Aspirin (Ecotrin) 81 mg DAILY PO Last administered on 03/22/19 08:53; Start 03/21/19 at 09:00 Calcium Carbonate/ Glycine (Oscal) 500 mg DAILY PO Last administered on 03/22/19 08:53; Start 03/21/19 at 09:00 Carvedilol (Coreg) 3.125 mg BIDWMEALS PO Last administered on 03/21/19 17:06; Start 03/21/19 at 09:00 Atorvastatin Calcium (Lipitor) 10 mg QHS PO Last administered on 03/21/19 21:50; Start 03/21/19 at 21:00 Vitamin D (Vitamin D3) 1,000 unit DAILY PO Last administered on 03/22/19 08:53; Start 03/21/19 at 09:00 Non-Formulary Medication (Fluticasone/ Salmeterol (Advair 250-50 Diskus)) 250 mg BID INH ; Start 03/21/19 at 09:00; Status UNV Gabapentin (Neurontin) 600 mg TID PO Last administered on 03/21/19 21:51; Start 03/21/19 at 09:00 Albuterol Sulfate (Ventolin Neb Soln) 2.5 mg Q6HRS NEB Last administered on 03/22/19 08:10; Start 03/21/19 at 12:00 Budesonide (Pulmicort) 0.5 mg RTBID NEB Last administered on 03/22/19 08:10; Start 03/21/19 at 10:00 Info (Anti-Coagulation Monitoring By Pharmacy) 1 each PRN DAILY PRN MC SEE COMMENTS Last administered on 03/21/19 15:31; Start 03/21/19 at 15:30 Ceftriaxone Sodium (Rocephin) 1 gm Q24H IVP Last administered on 03/21/19 17:05; Start 03/21/19 at 17:00 Warfarin Sodium (Coumadin) 4 mg DAILY16 PO ; Start 03/21/19 at 16:00; Stop 03/21/19 at 15:51; Status DC Warfarin Sodium (Coumadin Per Pharmacy) 1 each PRN DAILY PRN MC SEE COMMENTS Last administered on 03/21/19at 16:33; Start 03/21/19 at 15:45 Warfarin Sodium (Coumadin) 7.5 mg 1X WARF ONCE PO Last administered on 03/21/19at 17:05; Start 03/21/19 at 17:00; Stop 03/21/19 at 17:01; Status DC Active Scripts Active Reported Advair 250-50 Diskus (Fluticasone/Salmeterol) 1 Each Disk.w.dev 250 BID MDD 1 Prednisone 20 Mg Tablet 20 Proair Hfa Inhaler (Albuterol Sulfate) 8.5 Gm Hfa.aer.ad 1 Puff INH PRN Q6HRS PRN Gabapentin 600 Mg Tablet 600 Mg PO TID Calcium (Calcium Carbonate) 500 Mg Tablet 500 Mg PO DAILY Vitamin D (Cholecalciferol (Vitamin D3)) 1,000 Unit Capsule 1 Cap PO DAILY Aspir 81 (Aspirin) 81 Mg Tablet. 1 Tab PO DAILY Carvedilol (Carvedilol) 3.125 Mg Tablet 1 Tab PO BID Simvastatin 20 Mg Tablet 1 Tab PO QHS Vitals/I & O Vital Sign - Last 24 Hours 03/21/19 03/21/19 03/21/19 03/21/19 10:39 13:06 13:12 13:30 Temp 97.8 97.8 Pulse 58 58 Resp 20 B/P (MAP) 119/59 (79) 119/59 Pulse Ox 87 97 97 O2 Delivery Nasal Cannula Nasal Cannula Nasal Cannula O2 Flow Rate 2.0 2.0 2.0 03/21/19 03/21/19 03/21/19 03/21/19 14:36 17:06 19:10 20:20 Temp 98.4 98.5 98.4 98.5 Pulse 65 65 59 Resp 20 21 B/P (MAP) 124/60 (81) 124/60 134/62 (86) Pulse Ox 98 94 O2 Delivery Nasal Cannula Nasal Cannula Nasal Cannula O2 Flow Rate 2.0 2.0 2.0 03/21/19 03/21/19 03/21/19 03/22/19 20:51 20:52 23:05 03:00 Temp 98.0 97.1 98.0 97.1 Pulse 52 47 Resp 22 22 B/P (MAP) 127/58 (81) 137/65 (89) Pulse Ox 95 95 93 93 O2 Delivery Nasal Cannula Nasal Cannula Nasal Cannula Nasal Cannula O2 Flow Rate 1.0 1.0 2.0 1.0 03/22/19 03/22/19 07:00 08:12 Temp 97.9 97.9 Pulse 43 Resp 22 B/P (MAP) 156/67 (96) Pulse Ox 91 92 O2 Delivery Nasal Cannula Nasal Cannula O2 Flow Rate 1.0 1.0 Intake and Output 03/21/19 03/21/19 03/22/19 15:00 23:00 07:00 Intake Total 560 ml 450 ml Output Total 100 ml 500 ml Balance -100 ml 560 ml -50 ml CELSO KIRBY MD Mar 22, 2019 09:17
--- NOTE | 2019-03-22 09:57 | NUR ---
Pharmacy Warfarin Dosing Note S:Pharmacy consulted to assist with anticoagulation therapy started with target INR: 2 -3 O:JASPAL BROOKS is a 78 year old F with Atrial Fibrillation Post [place] NSTEMI LABS: Last INR: 1.0 Last HGB: 13.9 Last HCT: 42.4 Last PLT: 181 Last dose of 7.5 mg given on 03/21/19 at 1705 Previous Regimen: Vitamin K given: Drug Interaction Changes: Ongoing Drug Interactions: A:INR of 1.0 is below desired range. Target range for this patient is: 2 -3 P: Warfarin dose: 6 mg Today at 1600 Bridge Therapy: Heparin Therapeutic CONT Next INR due 03/23/19. Pharmacy anticoagulation service will continue to follow. NIDHI AMANDA [facility], 03/22/19 [id number]
[2019-03-22 10:08] VITALS: BP 162/70
[2019-03-22] MEDS: LISINOPRIL 5 MG TABLET. PO SCH (11:22)
[2019-03-22 14:42] VITALS: BP 154/69
--- NOTE | 2019-03-22 14:48 | PDOC ---
PROGRESS NOTES Subjective Subjective Patient seen and examined The patient feels more fatigued today. Objective Objective Vital Signs Date Time Temp Pulse Resp B/P (MAP) Pulse Ox O2 Delivery O2 Flow Rate FiO2 03/22/19 14:42 98.0 53 22 154/69 (97) 100 Nasal Cannula 1.0 98.0 Intake and Output 03/22/19 07:00 Intake Total 1010 ml Output Total 600 ml Balance 410 ml Intake Oral 1010 ml Output Urine Total 600 ml # Voids 3 Physical Exam Abdomen: Normal bowel sounds Heart: Regular rate General: No acute distress Lungs: Clear to auscultation Assessment Assessment 1. Chest pain. Now resolved. Troponin has now elevated to 3.8. Pain has resolved. Patient has a history of bypass surgery with the last catheterization in August 2015. At this time will continue on anticoagulation. We'll tentatively plan for probable heart catheter tomorrow. Risks and benefits were discussed with the patient. She has agreed to proceed. 2. Episode of atrial fibrillation. Now resolved. We'll continue to monitor. Will consider future anticoagulation based on her clinical course. 3. Hypertension. Under better control, continue medications. 4. Hyperlipidemia. Continue statins and monitor lab. Comment Review of Relevant I have reviewed the following items fernando (where applicable) has been applied. Labs Laboratory Tests Test 03/21/19 03:25 03/21/19 03:39 03/21/19 05:10 03/21/19 08:00 White Blood Count 9.4 x10^3/uL (4.0-11.0) Red Blood Count 5.47 x10^6/uL (3.50-5.40) Hemoglobin 15.6 g/dL (12.0-15.5) Hematocrit 47.2 % (36.0-47.0) Mean Corpuscular Volume 86 fL (79-100) Mean Corpuscular Hemoglobin 29 pg (25-35) Mean Corpuscular Hemoglobin Concent 33 g/dL (31-37) Red Cell Distribution Width 14.7 % (11.5-14.5) Platelet Count 205 x10^3/uL (140-400) Neutrophils (%) (Auto) 84 % (31-73) Lymphocytes (%) (Auto) 11 % (24-48) Monocytes (%) (Auto) 4 % (0-9) Eosinophils (%) (Auto) 0 % (0-3) Basophils (%) (Auto) 0 % (0-3) Neutrophils # (Auto) 7.9 x10^3/uL (1.8-7.7) Lymphocytes # (Auto) 1.1 x10^3/uL (1.0-4.8) Monocytes # (Auto) 0.4 x10^3/uL (0.0-1.1) Eosinophils # (Auto) 0.0 x10^3/uL (0.0-0.7) Basophils # (Auto) 0.0 x10^3/uL (0.0-0.2) D-Dimer (María Elena) 0.67 ug/mlFEU (0.00-0.50) Bedside Troponin I 0.02 ng/ml (<0.08) Sodium Level 135 mmol/L (136-145) Potassium Level 4.3 mmol/L (3.5-5.1) Chloride Level 98 mmol/L (98-107) Carbon Dioxide Level 32 mmol/L (21-32) Anion Gap 5 (6-14) Blood Urea Nitrogen 24 mg/dL (7-20) Creatinine 1.1 mg/dL (0.6-1.0) Estimated GFR (Cockcroft-Gault) 47.9 BUN/Creatinine Ratio 22 (6-20) Glucose Level 174 mg/dL (70-99) Calcium Level 8.8 mg/dL (8.5-10.1) Magnesium Level 2.2 mg/dL (1.8-2.4) Total Bilirubin 0.2 mg/dL (0.2-1.0) Aspartate Amino Transf (AST/SGOT) < 5 U/L (15-37) Alanine Aminotransferase (ALT/SGPT) 14 U/L (14-59) Alkaline Phosphatase 85 U/L (46-116) Troponin I Quantitative 0.193 ng/mL (0.000-0.055) 0.964 ng/mL (0.000-0.055) AH-Zjo-C-Type Natriuretic Peptide 1880 pg/mL (0-449) Total Protein 6.9 g/dL (6.4-8.2) Albumin 3.3 g/dL (3.4-5.0) Albumin/Globulin Ratio 0.9 (1.0-1.7) Test 03/21/19 11:00 03/21/19 14:53 03/21/19 19:30 03/22/19 03:15 Prothrombin Time 13.5 SEC (11.7-14.0) 13.0 SEC (11.7-14.0) Prothromb Time International Ratio 1.1 (0.8-1.1) 1.0 (0.8-1.1) Heparin Anti-Xa Act, Unfractionated 0.27 IU/mL (0.30-0.70) 0.65 IU/mL (0.30-0.70) 0.63 IU/mL (0.30-0.70) Troponin I Quantitative 2.700 ng/mL (0.000-0.055) 3.853 ng/mL (0.000-0.055) Urine Collection Type Unknown Urine Color Yellow Urine Clarity Cloudy Urine pH 6.0 Urine Specific Chaplin 1.015 Urine Protein Negative mg/dL (NEG-TRACE) Urine Glucose (UA) Negative mg/dL (NEG) Urine Ketones (Stick) Negative mg/dL (NEG) Urine Blood Moderate (NEG) Urine Nitrite Positive (NEG) Urine Bilirubin Negative (NEG) Urine Urobilinogen Dipstick 0.2 mg/dL (0.2 mg/dL) Urine Leukocyte Esterase Moderate (NEG) Urine RBC Occ /HPF (0-2) Urine WBC 11-20 /HPF (0-4) Urine Squamous Epithelial Cells Many /LPF Urine Bacteria Many /HPF (0-FEW) White Blood Count 7.4 x10^3/uL (4.0-11.0) Red Blood Count 4.93 x10^6/uL (3.50-5.40) Hemoglobin 13.9 g/dL (12.0-15.5) Hematocrit 42.4 % (36.0-47.0) Mean Corpuscular Volume 86 fL (79-100) Mean Corpuscular Hemoglobin 28 pg (25-35) Mean Corpuscular Hemoglobin Concent 33 g/dL (31-37) Red Cell Distribution Width 14.6 % (11.5-14.5) Platelet Count 181 x10^3/uL (140-400) Neutrophils (%) (Auto) 61 % (31-73) Lymphocytes (%) (Auto) 28 % (24-48) Monocytes (%) (Auto) 6 % (0-9) Eosinophils (%) (Auto) 4 % (0-3) Basophils (%) (Auto) 1 % (0-3) Neutrophils # (Auto) 4.5 x10^3/uL (1.8-7.7) Lymphocytes # (Auto) 2.1 x10^3/uL (1.0-4.8) Monocytes # (Auto) 0.4 x10^3/uL (0.0-1.1) Eosinophils # (Auto) 0.3 x10^3/uL (0.0-0.7) Basophils # (Auto) 0.1 x10^3/uL (0.0-0.2) Sodium Level 139 mmol/L (136-145) Potassium Level 4.1 mmol/L (3.5-5.1) Chloride Level 101 mmol/L (98-107) Carbon Dioxide Level 30 mmol/L (21-32) Anion Gap 8 (6-14) Blood Urea Nitrogen 25 mg/dL (7-20) Creatinine 1.0 mg/dL (0.6-1.0) Estimated GFR (Cockcroft-Gault) 53.5 BUN/Creatinine Ratio 25 (6-20) Glucose Level 117 mg/dL (70-99) Calcium Level 8.6 mg/dL (8.5-10.1) Total Bilirubin 0.3 mg/dL (0.2-1.0) Aspartate Amino Transf (AST/SGOT) 34 U/L (15-37) Alanine Aminotransferase (ALT/SGPT) 15 U/L (14-59) Alkaline Phosphatase 65 U/L (46-116) Total Protein 5.8 g/dL (6.4-8.2) Albumin 2.6 g/dL (3.4-5.0) Albumin/Globulin Ratio 0.8 (1.0-1.7) Thyroid Stimulating Hormone (TSH) 1.017 uIU/mL (0.358-3.74) Laboratory Tests Test 03/21/19 14:53 03/21/19 19:30 03/22/19 03:15 Urine Collection Type Unknown Urine Color Yellow Urine Clarity Cloudy Urine pH 6.0 Urine Specific Chaplin 1.015 Urine Protein Negative mg/dL (NEG-TRACE) Urine Glucose (UA) Negative mg/dL (NEG) Urine Ketones (Stick) Negative mg/dL (NEG) Urine Blood Moderate (NEG) Urine Nitrite Positive (NEG) Urine Bilirubin Negative (NEG) Urine Urobilinogen Dipstick 0.2 mg/dL (0.2 mg/dL) Urine Leukocyte Esterase Moderate (NEG) Urine RBC Occ /HPF (0-2) Urine WBC 11-20 /HPF (0-4) Urine Squamous Epithelial Cells Many /LPF Urine Bacteria Many /HPF (0-FEW) Heparin Anti-Xa Act, Unfractionated 0.65 IU/mL (0.30-0.70) 0.63 IU/mL (0.30-0.70) White Blood Count 7.4 x10^3/uL (4.0-11.0) Red Blood Count 4.93 x10^6/uL (3.50-5.40) Hemoglobin 13.9 g/dL (12.0-15.5) Hematocrit 42.4 % (36.0-47.0) Mean Corpuscular Volume 86 fL (79-100) Mean Corpuscular Hemoglobin 28 pg (25-35) Mean Corpuscular Hemoglobin Concent 33 g/dL (31-37) Red Cell Distribution Width 14.6 % (11.5-14.5) Platelet Count 181 x10^3/uL (140-400) Neutrophils (%) (Auto) 61 % (31-73) Lymphocytes (%) (Auto) 28 % (24-48) Monocytes (%) (Auto) 6 % (0-9) Eosinophils (%) (Auto) 4 % (0-3) Basophils (%) (Auto) 1 % (0-3) Neutrophils # (Auto) 4.5 x10^3/uL (1.8-7.7) Lymphocytes # (Auto) 2.1 x10^3/uL (1.0-4.8) Monocytes # (Auto) 0.4 x10^3/uL (0.0-1.1) Eosinophils # (Auto) 0.3 x10^3/uL (0.0-0.7) Basophils # (Auto) 0.1 x10^3/uL (0.0-0.2) Prothrombin Time 13.0 SEC (11.7-14.0) Prothromb Time International Ratio 1.0 (0.8-1.1) Sodium Level 139 mmol/L (136-145) Potassium Level 4.1 mmol/L (3.5-5.1) Chloride Level 101 mmol/L (98-107) Carbon Dioxide Level 30 mmol/L (21-32) Anion Gap 8 (6-14) Blood Urea Nitrogen 25 mg/dL (7-20) Creatinine 1.0 mg/dL (0.6-1.0) Estimated GFR (Cockcroft-Gault) 53.5 BUN/Creatinine Ratio 25 (6-20) Glucose Level 117 mg/dL (70-99) Calcium Level 8.6 mg/dL (8.5-10.1) Total Bilirubin 0.3 mg/dL (0.2-1.0) Aspartate Amino Transf (AST/SGOT) 34 U/L (15-37) Alanine Aminotransferase (ALT/SGPT) 15 U/L (14-59) Alkaline Phosphatase 65 U/L (46-116) Troponin I Quantitative 3.853 ng/mL (0.000-0.055) Total Protein 5.8 g/dL (6.4-8.2) Albumin 2.6 g/dL (3.4-5.0) Albumin/Globulin Ratio 0.8 (1.0-1.7) Thyroid Stimulating Hormone (TSH) 1.017 uIU/mL (0.358-3.74) Medications Current Medications Aspirin (Children'S Aspirin) 324 mg 1X ONCE PO ; Start 03/21/19 at 03:30; Stop 03/21/19 at 03:31; Status DC Diltiazem HCl (Cardizem Iv Push) 10 mg 1X ONCE IVP Last administered on 03/21/19at 03:37; Start 03/21/19 at 03:45; Stop 03/21/19 at 03:46; Status DC Diltiazem HCl 125 mg/Dextrose 125 ml @ 5 mls/hr CONT PRN IV SEE I/O RECORD Last administered on 03/21/19at 03:46; Start 03/21/19 at 03:45; Stop 03/21/19 at 16:44; Status DC Nitroglycerin (Nitro-Bid Oint) 0.5 inch 1X ONCE TP Last administered on 03/21/19at 03:54; Start 03/21/19 at 03:45; Stop 03/21/19 at 03:46; Status DC Morphine Sulfate (Morphine Sulfate) 2 mg 1X ONCE IV ; Start 03/21/19 at 03:45; Stop 03/21/19 at 03:46; Status DC Diltiazem HCl (Cardizem Iv Push) 25 mg STK-MED ONCE .ROUTE ; Start 03/21/19 at 03:34; Stop 03/21/19 at 03:36; Status DC Digoxin (Lanoxin) 250 mcg 1X ONCE IV Last administered on 03/21/19at 04:21; Start 03/21/19 at 04:15; Stop 03/21/19 at 04:23; Status DC Heparin Sodium/ Dextrose 500 ml @ 0 mls/hr CONT PRN IV SEE COMMENTS Last administered on 03/21/19at 05:01; Start 03/21/19 at 04:30 Heparin Sodium (Porcine) (Heparin Sodium) 2,000 unit PRN Q6HRS PRN IV FOR UFH LEVEL LESS THAN 0.2 Last administered on 03/21/19at 04:58; Start 03/21/19 at 04:30 Ondansetron HCl (Zofran) 4 mg PRN Q8HRS PRN IV NAUSEA/VOMITING; Start 03/21/19 at 05:15; Stop 03/22/19 at 05:14; Status DC Morphine Sulfate (Morphine Sulfate) 2 mg PRN Q2HR PRN IV PAIN; Start 03/21/19 at 05:15; Stop 03/22/19 at 05:14; Status DC Albuterol Sulfate (Ventolin Neb Soln) 2.5 mg PRN Q6HRS PRN INH SHORTNESS OF BREATH; Start 03/21/19 at 09:00 Aspirin (Ecotrin) 81 mg DAILY PO Last administered on 03/22/19at 08:53; Start 03/21/19 at 09:00 Calcium Carbonate/ Glycine (Oscal) 500 mg DAILY PO Last administered on 03/22/19at 08:53; Start 03/21/19 at 09:00 Carvedilol (Coreg) 3.125 mg BIDWMEALS PO Last administered on 03/21/19at 17:06; Start 03/21/19 at 09:00 Atorvastatin Calcium (Lipitor) 10 mg QHS PO Last administered on 03/21/19at 21:50; Start 03/21/19 at 21:00 Vitamin D (Vitamin D3) 1,000 unit DAILY PO Last administered on 03/22/19 08:53; Start 03/21/19 at 09:00 Non-Formulary Medication (Fluticasone/ Salmeterol (Advair 250-50 Diskus)) 250 mg BID INH ; Start 03/21/19 at 09:00; Status UNV Gabapentin (Neurontin) 600 mg TID PO Last administered on 03/21/19at 21:51; Start 03/21/19 at 09:00; Stop 03/22/19 at 14:08; Status DC Albuterol Sulfate (Ventolin Neb Soln) 2.5 mg Q6HRS NEB Last administered on 03/22/19at 13:33; Start 03/21/19 at 12:00 Budesonide (Pulmicort) 0.5 mg RTBID NEB Last administered on 03/22/19 08:10; Start 03/21/19 at 10:00 Info (Anti-Coagulation Monitoring By Pharmacy) 1 each PRN DAILY PRN MC SEE COMMENTS Last administered on 03/21/19at 15:31; Start 03/21/19 at 15:30 Ceftriaxone Sodium (Rocephin) 1 gm Q24H IVP Last administered on 03/21/19at 17:05; Start 03/21/19 at 17:00 Warfarin Sodium (Coumadin) 4 mg DAILY16 PO ; Start 03/21/19 at 16:00; Stop 03/21/19 at 15:51; Status DC Warfarin Sodium (Coumadin Per Pharmacy) 1 each PRN DAILY PRN MC SEE COMMENTS Last administered on 03/22/19at 09:57; Start 03/21/19 at 15:45 Warfarin Sodium (Coumadin) 7.5 mg 1X WARF ONCE PO Last administered on 03/21/19at 17:05; Start 03/21/19 at 17:00; Stop 03/21/19 at 17:01; Status DC Warfarin Sodium (Coumadin) 6 mg 1X WARF ONCE PO ; Start 03/22/19 at 16:00; Stop 03/22/19 at 16:01 Lactobacillus Rhamnosus (Culturelle) 1 cap BID PO ; Start 03/22/19 at 21:00 Lisinopril (Prinivil) 5 mg DAILY PO Last administered on 03/22/19at 11:22; Start 03/22/19 at 11:00 Albuterol/ Ipratropium (Duoneb) 3 ml RTQID NEB ; Start 03/22/19 at 16:00 Gabapentin (Neurontin) 100 mg BID PO ; Start 03/22/19 at 21:00 Active Scripts Active Reported Advair 250-50 Diskus (Fluticasone/Salmeterol) 1 Each Disk.w.dev 250 BID MDD 1 Prednisone 20 Mg Tablet 20 Proair Hfa Inhaler (Albuterol Sulfate) 8.5 Gm Hfa.aer.ad 1 Puff INH PRN Q6HRS PRN Gabapentin 600 Mg Tablet 600 Mg PO TID Calcium (Calcium Carbonate) 500 Mg Tablet 500 Mg PO DAILY Vitamin D (Cholecalciferol (Vitamin D3)) 1,000 Unit Capsule 1 Cap PO DAILY Aspir 81 (Aspirin) 81 Mg Tablet. 1 Tab PO DAILY Carvedilol (Carvedilol) 3.125 Mg Tablet 1 Tab PO BID Simvastatin 20 Mg Tablet 1 Tab PO QHS Vitals/I & O Vital Sign - Last 24 Hours 03/21/19 03/21/19 03/21/19 03/21/19 17:06 19:10 20:20 20:51 Temp 98.5 98.5 Pulse 65 59 Resp 21 B/P (MAP) 124/60 134/62 (86) Pulse Ox 94 95 O2 Delivery Nasal Cannula Nasal Cannula Nasal Cannula O2 Flow Rate 2.0 2.0 1.0 03/21/19 03/21/19 03/22/19 03/22/19 20:52 23:05 03:00 07:00 Temp 98.0 97.1 97.9 98.0 97.1 97.9 Pulse 52 47 43 Resp 22 22 22 B/P (MAP) 127/58 (81) 137/65 (89) 156/67 (96) Pulse Ox 95 93 93 91 O2 Delivery Nasal Cannula Nasal Cannula Nasal Cannula Nasal Cannula O2 Flow Rate 1.0 2.0 1.0 1.0 03/22/19 03/22/19 03/22/19 03/22/19 08:00 08:00 08:12 10:08 Temp 97.5 97.5 Pulse 45 49 Resp 22 B/P (MAP) 162/70 (100) Pulse Ox 92 94 O2 Delivery Nasal Cannula Nasal Cannula Nasal Cannula O2 Flow Rate 2.0 1.0 1.0 03/22/19 03/22/19 03/22/19 11:22 13:33 14:42 Temp 98.0 98.0 Pulse 49 53 Resp 22 B/P (MAP) 162/70 154/69 (97) Pulse Ox 94 100 O2 Delivery Nasal Cannula Nasal Cannula O2 Flow Rate 1.0 1.0 Intake and Output 03/21/19 03/21/19 03/22/19 15:00 23:00 07:00 Intake Total 560 ml 450 ml Output Total 100 ml 500 ml Balance -100 ml 560 ml -50 ml CINTHIA PEDRO MD Mar 22, 2019 14:48
[2019-03-22] MEDS ORDERED: WARFARIN 3 MG TABLET. PO ONE (16:00)
[2019-03-22] MEDS: cefTRIAXone IV Push 1 GM VIAL. IVP SCH (18:09)
[2019-03-22 19:20] VITALS: BP 132/61
[2019-03-22] MEDS ORDERED: TEMAZEPAM 7.5 MG CAPSULE PO PRN (20:00)
[2019-03-22] MEDS: GABAPENTIN 100 MG CAPSULE. PO SCH (20:50)
[2019-03-22] MEDS: LACTOBACILLUS RHAMNOSUS GG 1 CAPSULE. PO SCH (20:50)
[2019-03-22] MEDS: ATORVASTATIN CALCIUM 10 MG TABLET. PO SCH (20:50)
[2019-03-22] MEDS: IPRATRPIUM/ALBUTEROL 0.5/2.5MG 3 ML NEBU. NEB SCH (21:08)
[2019-03-22 22:50] VITALS: BP 142/63
[2019-03-23] VITALS (7 sets, daily range): BP systolic 125–158; BP diastolic 57–68
[2019-03-23] MEDS: HEPARIN 25,000UTS/500ML PREMIX 500 ML IV PRN (02:15)
[2019-03-23 03:07] LABS: HEMOGLOBIN A1C 6.2 % (4.8-5.6)
[2019-03-23] MEDS: ALBUTEROL SULFATE 2.5 MG/3 ML NEBU. NEB SCH ×4 (06:00→20:00)
[2019-03-23 07:10] LABS: PROTHROMBIN TIME PATIENT 13.9 SEC (11.7-14.0)
[2019-03-23] MEDS: BUDESONIDE 0.5 MG/2 ML NEBU. NEB SCH ×2 (07:10→20:00)
[2019-03-23 07:11] LABS: UNFRACTIONATED HEPARIN TESTING 0.29 IU/mL (0.30-0.70)
[2019-03-23] MEDS: IPRATRPIUM/ALBUTEROL 0.5/2.5MG 3 ML NEBU. NEB SCH ×4 (07:11→20:00)
[2019-03-23 07:17] LABS: CALCIUM 8.9 mg/dL (8.5-10.1); CREATININE 0.7 mg/dL (0.6-1.0); GFR 80.7; POTASSIUM 4.3 mmol/L (3.5-5.1)
[2019-03-23] MEDS ORDERED: IV NORMAL SALINE 1000ML BAG 1,000 ML IV SCH (07:30)
--- NOTE | 2019-03-23 08:34 | PDOC ---
PROGRESS NOTES Chief Complaint Chief Complaint A/P: Chest pain - improved with heparin GTT. NSTEMI - troponin at 0.964. Patient is on heparin. 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 Will transition back to her BB. Echo ordered Hypertension - stable, continue medications. Hyperlipidemia - Cont statin Hyperglycemia - 174 on fasting labs this morning. She does not mention history of diabetes. Will check TSH and A1c. Dysuria - UTI present, will treat with empiric rocephin, may have set off afib Otalgia - no effusion or cerumen in ears, will monitor, may be part of her NSTEMi FEN - cardiac diet PPX - heparin GTT FULL CODE Dispo - CVC for NSTEMI, new afib History of Present Illness History of Present Illness Ms Palomares is a 78yo F w/ PMHx CAD s/p CABG who comes in with chest pain the pain as dull center aspect of her chest. She does describe pain behind her ears as well. Denies any nausea, vomiting, cough, fever. History coronary disease and sees cardiology this facility. She states the pain started at some point in time tonight prior to her arrival. Nothing makes her pain worse, nothing makes her pain better. Upon initial evaluation patient presented with sinus tachycardia heart rate in the 130s to 150s. She denies any history of atrial fibrillation or other arrhythmia. EKG obtained revealing evidence of ST depression in V3 V4, V5, V6 no evidence of ST elevation [place]. 03/22: Troponin further elevated this morning 2.7-->3.5. She is c/o shortness of breath and wheezing. No or GI complaints. Feeling short of breath, she thinks her chest pain is better. No GI or sy mptoms. Still on heparin GTT. NPO for possible angiography Vitals Vitals Vital Signs Date Time Temp Pulse Resp B/P (MAP) Pulse Ox O2 Delivery O2 Flow Rate FiO2 03/23/19 07:29 97.3 48 20 155/68 (97) 98 Nasal Cannula 2.0 97.3 Physical Exam General: Alert, Oriented X3, Cooperative, No acute distress Heart: Regular rate Lungs: Clear Abdomen: Normal bowel sounds Extremities: No clubbing, No cyanosis, No edema, Normal pulses, No tenderness/swelling Skin: No rashes, No breakdown, No significant lesion Labs LABS Laboratory Tests Test 03/22/19 15:15 03/22/19 22:40 03/23/19 06:00 Heparin Anti-Xa Act, Unfractionated 0.47 IU/mL (0.30-0.70) 0.60 IU/mL (0.30-0.70) 0.29 IU/mL (0.30-0.70) Prothrombin Time 13.9 SEC (11.7-14.0) Prothromb Time International Ratio 1.1 (0.8-1.1) Sodium Level 137 mmol/L (136-145) Potassium Level 4.3 mmol/L (3.5-5.1) Chloride Level 102 mmol/L (98-107) Carbon Dioxide Level 28 mmol/L (21-32) Anion Gap 7 (6-14) Blood Urea Nitrogen 15 mg/dL (7-20) Creatinine 0.7 mg/dL (0.6-1.0) Estimated GFR (Cockcroft-Gault) 80.7 Glucose Level 96 mg/dL (70-99) Calcium Level 8.9 mg/dL (8.5-10.1) Comment Review of Relevant I have reviewed the following items fernando (where applicable) has been applied. Labs Laboratory Tests Test 03/21/19 11:00 03/21/19 14:53 03/21/19 19:30 03/22/19 03:15 Prothrombin Time 13.5 SEC (11.7-14.0) 13.0 SEC (11.7-14.0) Prothromb Time International Ratio 1.1 (0.8-1.1) 1.0 (0.8-1.1) Heparin Anti-Xa Act, Unfractionated 0.27 IU/mL (0.30-0.70) 0.65 IU/mL (0.30-0.70) 0.63 IU/mL (0.30-0.70) Troponin I Quantitative 2.700 ng/mL (0.000-0.055) 3.853 ng/mL (0.000-0.055) Urine Collection Type Unknown Urine Color Yellow Urine Clarity Cloudy Urine pH 6.0 Urine Specific [place] 1.015 Urine Protein Negative mg/dL (NEG-TRACE) Urine Glucose (UA) Negative mg/dL (NEG) Urine Ketones (Stick) Negative mg/dL (NEG) Urine Blood Moderate (NEG) Urine Nitrite Positive (NEG) Urine Bilirubin Negative (NEG) Urine Urobilinogen Dipstick 0.2 mg/dL (0.2 mg/dL) Urine Leukocyte Esterase Moderate (NEG) Urine RBC Occ /HPF (0-2) Urine WBC 11-20 /HPF (0-4) Urine Squamous Epithelial Cells Many /LPF Urine Bacteria Many /HPF (0-FEW) White Blood Count 7.4 x10^3/uL (4.0-11.0) Red Blood Count 4.93 x10^6/uL (3.50-5.40) Hemoglobin 13.9 g/dL (12.0-15.5) Hematocrit 42.4 % (36.0-47.0) Mean Corpuscular Volume 86 fL (79-100) Mean Corpuscular Hemoglobin 28 pg (25-35) Mean Corpuscular Hemoglobin Concent 33 g/dL (31-37) Red Cell Distribution Width 14.6 % (11.5-14.5) Platelet Count 181 x10^3/uL (140-400) Neutrophils (%) (Auto) 61 % (31-73) Lymphocytes (%) (Auto) 28 % (24-48) Monocytes (%) (Auto) 6 % (0-9) Eosinophils (%) (Auto) 4 % (0-3) Basophils (%) (Auto) 1 % (0-3) Neutrophils # (Auto) 4.5 x10^3/uL (1.8-7.7) Lymphocytes # (Auto) 2.1 x10^3/uL (1.0-4.8) Monocytes # (Auto) 0.4 x10^3/uL (0.0-1.1) Eosinophils # (Auto) 0.3 x10^3/uL (0.0-0.7) Basophils # (Auto) 0.1 x10^3/uL (0.0-0.2) Sodium Level 139 mmol/L (136-145) Potassium Level 4.1 mmol/L (3.5-5.1) Chloride Level 101 mmol/L (98-107) Carbon Dioxide Level 30 mmol/L (21-32) Anion Gap 8 (6-14) Blood Urea Nitrogen 25 mg/dL (7-20) Creatinine 1.0 mg/dL (0.6-1.0) Estimated GFR (Cockcroft-Gault) 53.5 BUN/Creatinine Ratio 25 (6-20) Glucose Level 117 mg/dL (70-99) Hemoglobin A1c 6.2 % (4.8-5.6) Calcium Level 8.6 mg/dL (8.5-10.1) Total Bilirubin 0.3 mg/dL (0.2-1.0) Aspartate Amino Transf (AST/SGOT) 34 U/L (15-37) Alanine Aminotransferase (ALT/SGPT) 15 U/L (14-59) Alkaline Phosphatase 65 U/L (46-116) Total Protein 5.8 g/dL (6.4-8.2) Albumin 2.6 g/dL (3.4-5.0) Albumin/Globulin Ratio 0.8 (1.0-1.7) Thyroid Stimulating Hormone (TSH) 1.017 uIU/mL (0.358-3.74) Test 03/22/19 15:15 03/22/19 22:40 03/23/19 06:00 Heparin Anti-Xa Act, Unfractionated 0.47 IU/mL (0.30-0.70) 0.60 IU/mL (0.30-0.70) 0.29 IU/mL (0.30-0.70) Prothrombin Time 13.9 SEC (11.7-14.0) Prothromb Time International Ratio 1.1 (0.8-1.1) Sodium Level 137 mmol/L (136-145) Potassium Level 4.3 mmol/L (3.5-5.1) Chloride Level 102 mmol/L (98-107) Carbon Dioxide Level 28 mmol/L (21-32) Anion Gap 7 (6-14) Blood Urea Nitrogen 15 mg/dL (7-20) Creatinine 0.7 mg/dL (0.6-1.0) Estimated GFR (Cockcroft-Gault) 80.7 Glucose Level 96 mg/dL (70-99) Calcium Level 8.9 mg/dL (8.5-10.1) Laboratory Tests Test 03/22/19 15:15 03/22/19 22:40 03/23/19 06:00 Heparin Anti-Xa Act, Unfractionated 0.47 IU/mL (0.30-0.70) 0.60 IU/mL (0.30-0.70) 0.29 IU/mL (0.30-0.70) Prothrombin Time 13.9 SEC (11.7-14.0) Prothromb Time International Ratio 1.1 (0.8-1.1) Sodium Level 137 mmol/L (136-145) Potassium Level 4.3 mmol/L (3.5-5.1) Chloride Level 102 mmol/L (98-107) Carbon Dioxide Level 28 mmol/L (21-32) Anion Gap 7 (6-14) Blood Urea Nitrogen 15 mg/dL (7-20) Creatinine 0.7 mg/dL (0.6-1.0) Estimated GFR (Cockcroft-Gault) 80.7 Glucose Level 96 mg/dL (70-99) Calcium Level 8.9 mg/dL (8.5-10.1) Medications Current Medications Aspirin (Children'S Aspirin) 324 mg 1X ONCE PO ; Start 03/21/19 at 03:30; Stop 03/21/19 at 03:31; Status DC Diltiazem HCl (Cardizem Iv Push) 10 mg 1X ONCE IVP Last administered on 03/21/19at 03:37; Start 03/21/19 at 03:45; Stop 03/21/19 at 03:46; Status DC Diltiazem HCl 125 mg/Dextrose 125 ml @ 5 mls/hr CONT PRN IV SEE I/O RECORD Last administered on 03/21/19at 03:46; Start 03/21/19 at 03:45; Stop 03/21/19 at 16:44; Status DC Nitroglycerin (Nitro-Bid Oint) 0.5 inch 1X ONCE TP Last administered on 03/21/19at 03:54; Start 03/21/19 at 03:45; Stop 03/21/19 at 03:46; Status DC Morphine Sulfate (Morphine Sulfate) 2 mg 1X ONCE IV ; Start 03/21/19 at 03:45; Stop 03/21/19 at 03:46; Status DC Diltiazem HCl (Cardizem Iv Push) 25 mg STK-MED ONCE .ROUTE ; Start 03/21/19 at 03:34; Stop 03/21/19 at 03:36; Status DC Digoxin (Lanoxin) 250 mcg 1X ONCE IV Last administered on 03/21/19at 04:21; Start 03/21/19 at 04:15; Stop 03/21/19 at 04:23; Status DC Heparin Sodium/ Dextrose 500 ml @ 0 mls/hr CONT PRN IV SEE COMMENTS Last administered on 03/23/19at 02:15; Start 03/21/19 at 04:30 Heparin Sodium (Porcine) (Heparin Sodium) 2,000 unit PRN Q6HRS PRN IV FOR UFH LEVEL LESS THAN 0.2 Last administered on 03/21/19at 04:58; Start 03/21/19 at 04:30 Ondansetron HCl (Zofran) 4 mg PRN Q8HRS PRN IV NAUSEA/VOMITING; Start 03/21/19 at 05:15; Stop 03/22/19 at 05:14; Status DC Morphine Sulfate (Morphine Sulfate) 2 mg PRN Q2HR PRN IV PAIN; Start 03/21/19 at 05:15; Stop 03/22/19 at 05:14; Status DC Albuterol Sulfate (Ventolin Neb Soln) 2.5 mg PRN Q6HRS PRN INH SHORTNESS OF BREATH; Start 03/21/19 at 09:00 Aspirin (Ecotrin) 81 mg DAILY PO Last administered on 03/22/19at 08:53; Start 03/21/19 at 09:00 Calcium Carbonate/ Glycine (Oscal) 500 mg DAILY PO Last administered on 03/22/19at 08:53; Start 03/21/19 at 09:00 Carvedilol (Coreg) 3.125 mg BIDWMEALS PO Last administered on 03/22/19at 18:09; Start 03/21/19 at 09:00 Atorvastatin Calcium (Lipitor) 10 mg QHS PO Last administered on 03/22/19at 20:50; Start 03/21/19 at 21:00 Vitamin D (Vitamin D3) 1,000 unit DAILY PO Last administered on 03/22/19 08:53; Start 03/21/19 at 09:00 Non-Formulary Medication (Fluticasone/ Salmeterol (Advair 250-50 Diskus)) 250 mg BID INH ; Start 03/21/19 at 09:00; Status UNV Gabapentin (Neurontin) 600 mg TID PO Last administered on 03/21/19 21:51; Start 03/21/19 at 09:00; Stop 03/22/19 at 14:08; Status DC Albuterol Sulfate (Ventolin Neb Soln) 2.5 mg Q6HRS NEB Last administered on 03/22/19at 13:33; Start 03/21/19 at 12:00 Budesonide (Pulmicort) 0.5 mg RTBID NEB Last administered on 03/23/19at 07:10; Start 03/21/19 at 10:00 Info (Anti-Coagulation Monitoring By Pharmacy) 1 each PRN DAILY PRN MC SEE COMMENTS Last administered on 03/21/19at 15:31; Start 03/21/19 at 15:30 Ceftriaxone Sodium (Rocephin) 1 gm Q24H IVP Last administered on 03/22/19at 18:09; Start 03/21/19 at 17:00 Warfarin Sodium (Coumadin) 4 mg DAILY16 PO ; Start 03/21/19 at 16:00; Stop 03/21/19 at 15:51; Status DC Warfarin Sodium (Coumadin Per Pharmacy) 1 each PRN DAILY PRN MC SEE COMMENTS Last administered on 03/22/19at 09:57; Start 03/21/19 at 15:45 Warfarin Sodium (Coumadin) 7.5 mg 1X WARF ONCE PO Last administered on 03/21/19at 17:05; Start 03/21/19 at 17:00; Stop 03/21/19 at 17:01; Status DC Warfarin Sodium (Coumadin) 6 mg 1X WARF ONCE PO ; Start 03/22/19 at 16:00; Stop 03/22/19 at 16:01; Status DC Lactobacillus Rhamnosus (Culturelle) 1 cap BID PO Last administered on 03/22/19at 20:50; Start 03/22/19 at 21:00 Lisinopril (Prinivil) 5 mg DAILY PO Last administered on 03/22/19at 11:22; Start 03/22/19 at 11:00 Albuterol/ Ipratropium (Duoneb) 3 ml RTQID NEB Last administered on 03/23/19 07:11; Start 03/22/19 at 16:00 Gabapentin (Neurontin) 100 mg BID PO Last administered on 12/15/19at 20:50; Start 03/22/19 at 21:00 Sodium Chloride 1,000 ml @ 60 mls/hr [id number] IV ; Start 03/23/19 at 07:30 Temazepam (Restoril) 7.5 mg PRN QHS PRN PO INSOMNIA Last administered on 03/22/19at 20:50; Start 03/22/19 at 20:00 Active Scripts Active Reported Advair 250-50 Diskus (Fluticasone/Salmeterol) 1 Each Disk.w.dev 250 BID MDD 1 Prednisone 20 Mg Tablet 20 Proair Hfa Inhaler (Albuterol Sulfate) 8.5 Gm Hfa.aer.ad 1 Puff INH PRN Q6HRS PRN Gabapentin 600 Mg Tablet 600 Mg PO TID Calcium (Calcium Carbonate) 500 Mg Tablet 500 Mg PO DAILY Vitamin D (Cholecalciferol (Vitamin D3)) 1,000 Unit Capsule 1 Cap PO DAILY Aspir 81 (Aspirin) 81 Mg Tablet. 1 Tab PO DAILY Carvedilol (Carvedilol) 3.125 Mg Tablet 1 Tab PO BID Simvastatin 20 Mg Tablet 1 Tab PO QHS Vitals/I & O Vital Sign - Last 24 Hours 03/22/19 03/22/19 03/22/19 03/22/19 10:08 11:22 13:33 14:42 Temp 97.5 98.0 97.5 98.0 Pulse 49 49 53 Resp 22 22 B/P (MAP) 162/70 (100) 162/70 154/69 (97) Pulse Ox 94 94 100 O2 Delivery Nasal Cannula Nasal Cannula Nasal Cannula O2 Flow Rate 1.0 1.0 1.0 03/22/19 03/22/19 03/22/19 03/22/19 18:09 19:20 20:00 21:09 Temp 98.5 98.5 Pulse 61 55 Resp 22 B/P (MAP) 154/69 132/61 (84) Pulse Ox 93 96 O2 Delivery Nasal Cannula Nasal Cannula Nasal Cannula O2 Flow Rate 2.0 2.0 3.0 03/22/19 03/22/19 03/23/19 03/23/19 21:10 22:50 03:00 07:12 Temp 97.4 97.8 97.4 97.8 Pulse 55 44 Resp 20 20 B/P (MAP) 142/63 (89) 125/59 (81) Pulse Ox 96 92 97 96 O2 Delivery Nasal Cannula Nasal Cannula Nasal Cannula Nasal Cannula O2 Flow Rate 3.0 2.0 2.0 3.0 03/23/19 07:29 Temp 97.3 97.3 Pulse 48 Resp 20 B/P (MAP) 155/68 (97) Pulse Ox 98 O2 Delivery Nasal Cannula O2 Flow Rate 2.0 Intake and Output 03/22/19 03/22/19 03/23/19 15:00 23:00 07:00 Intake Total 980 ml 240 ml 500 ml Output Total 1100 ml 150 ml 1100 ml Balance -120 ml 90 ml -600 ml CELSO KIRBY MD Mar 23, 2019 08:34
[2019-03-23] MEDS: LACTOBACILLUS RHAMNOSUS GG 1 CAPSULE. PO SCH ×2 (09:08→20:44)
[2019-03-23] MEDS: CALCIUM CARBONATE 500 MG TABLET PO SCH (09:08)
[2019-03-23] MEDS: GABAPENTIN 100 MG CAPSULE. PO SCH ×2 (09:08→20:44)
[2019-03-23] MEDS: ASPIRIN ENTERIC COATED 81 MG TABLET.DR. PO SCH (09:08)
[2019-03-23] MEDS: LISINOPRIL 5 MG TABLET. PO SCH (09:08)
[2019-03-23] MEDS: CHOLECALCIFEROL (VITAMIN D3) 1,000 UNIT TABLET PO SCH (09:08)
[2019-03-23] MEDS: CARVEDILOL 3.125 MG TABLET. PO SCH ×2 (09:13→17:39)
[2019-03-23] MEDS ORDERED: LIDOCAINE 1% PF 2 ML VIAL. ONE (09:14)
[2019-03-23] MEDS ORDERED: IOHEXOL 300 MG/ML 100ML VIAL. ONE (09:14)
[2019-03-23] MEDS ORDERED: HEPARIN for ARTERIAL LINE 1,500 ML ONE (09:15)
[2019-03-23] MEDS ORDERED: LIDOCAINE 1% Multi-Dose 20 ML VIAL. ONE (12:59)
[2019-03-23] MEDS ORDERED: fentaNYL PF VIAL 100 MCG/2 ML VIAL ONE (13:02)
[2019-03-23] MEDS ORDERED: MIDAZOLAM HCL/PF 2 MG/2 ML VIAL. ONE (13:03)
--- NOTE | 2019-03-23 13:27 | NUR ---
SS following for discharge planning. SS reviewed pt chart. Pt is from home and is currently requiring oxygen. Pt does not have home oxygen. Per cardiology, pt will need home healthcare at discharge. SS will continue to follow for discharge planning.
[2019-03-23] MEDS ORDERED: CONTRAST GIVEN. MC PRN (13:45)
[2019-03-23] MEDS ORDERED: IOHEXOL 300 MG/ML 100ML VIAL. IART ONE (13:45)
[2019-03-23] MEDS ORDERED: MIDAZOLAM HCL/PF 2 MG/2 ML VIAL. IV ONE (13:45)
[2019-03-23] MEDS ORDERED: LIDOCAINE 1% Multi-Dose 20 ML VIAL. INJ ONE (13:45)
[2019-03-23] MEDS ORDERED: fentaNYL PF VIAL 100 MCG/2 ML VIAL IV ONE (13:45)
--- NOTE | 2019-03-23 13:57 | CARD ---
MR#: [id number] Date of Study: 03/23/2019 Ordering Physician: CELSO KIRBY, Referring Physician: CELSO KIRBY, Tech: Cadence Greer [facility] APPROVED REPORT EXAM: Two-dimensional and M-mode echocardiogram with Doppler and color Doppler. Other Information Quality : Fair Rhythm : Atrial Fibrillation INDICATION Atrial Fibrillation Surgery/Intervention CABG: Date: 2009 2D DIMENSIONS RVDd2.4 (2.9-3.5cm)Left Atrium(2D)3.9 (1.6-4.0cm) IVSd0.9 (0.7-1.1cm)Aortic Root(2D)3.1 (2.0-3.7cm) LVDd4.6 (3.9-5.9cm)LVOT Diameter2.0 (1.8-2.4cm) PWd0.9 (0.7-1.1cm)LVDs2.6 (2.5-4.0cm) FS (%) 30.0 %SV73.0 ml LVEF(%)60.0 (>50%) Aortic Valve AoV Peak Lucian.104.4cm/sAoV VTI23.3cm AO Peak GR.4.4mmHgLVOT VTI 21.75cm AO Mean GR.2mmHgAVA (VTI)3.00cm2 Mitral Valve MV E Tfeepeiq19.6cm/sMV DECEL [id number] MV A Yehocvev32.9cm/sE/A Ratio0.7 TDI Lateral E' P. V5.34cm/sMedial E' P. V6.89cm/s E/Lateral E'10.4E/Medial E'8.1 Pulmonary Vein S1 Wkkxtgvw45.9cm/sS2 Yztrcugi87.77cm/s D2 Jcsowrnu91.8cm/s LEFT VENTRICLE The left ventricle is normal size. There is normal left ventricular wall thickness. The left ventricu lar systolic function is normal and the ejection fraction is within normal range. The Ejection Fracti on is 60-65%. There is normal LV segmental wall motion. Transmitral Doppler flow pattern is Grade I-a bnormal relaxation pattern. RIGHT VENTRICLE The right ventricle is normal size. The right ventricular systolic function is normal. ATRIA The left atrium size is normal. The right atrium size is normal. The interatrial septum is intact wit h no evidence for an atrial septal defect or patent foramen ovale as noted on 2-D or Doppler imaging. AORTIC VALVE The aortic valve is calcified but opens well. Doppler and Color Flow revealed no significant aortic r egurgitation. There is no significant aortic valvular stenosis. MITRAL VALVE The mitral valve is calcified but opens well. There is no evidence of mitral valve prolapse. There is no mitral valve stenosis. Doppler and Color-flow revealed trace mitral regurgitation. TRICUSPID VALVE The tricuspid valve is normal in structure and function. Doppler and Color Flow revealed trace tricus pid valve regurgitation. There is no tricuspid valve stenosis. PULMONIC VALVE The pulmonic valve is not well visualized. Doppler and Color Flow revealed trace pulmonic valvular re gurgitation. There is no pulmonic valvular stenosis. GREAT VESSELS The aortic root is normal in size. The ascending aorta is not well seen. The IVC is normal in size an d collapses >50% with inspiration. PERICARDIAL EFFUSION There is no evidence of significant pericardial effusion. Critical Notification Critical Value: No <Conclusion> The left ventricle is normal size. The left ventricular systolic function is normal and the ejection fraction is within normal range. The Ejection Fraction is 60-65%. Doppler and Color Flow revealed no significant aortic regurgitation. There is no significant aortic valvular stenosis. Doppler and Color-flow revealed trace mitral regurgitation. Doppler and Color Flow revealed trace tricuspid valve regurgitation. Signed by : Timothy Naqvi MD Electronically Approved : 03/23/2019 13:56:24
--- NOTE | 2019-03-23 14:39 | CARD ---
MR#: [id number] Date of Study: 03/23/2019 Ordering Physician: CINTHIA PEDRO, Referring Physician: CINTHIA PEDRO, Tech: LUCRECIA RUFFIN RTR APPROVED REPORT Technologist: LUCRECIA RUFFIN RTR Nurse: Gabriella Jack R.N. Procedure(s) performed: MODERATE SEDATION TIME: 40 MINUTES FLUORO TIME: 1.8 MIN DOSE:28.3 GYCM2 CONTRAST: 43CC OMNI LHC, Coronary angiography, Bypass angiography HISTORY The patient is a 78 year-old female with a history of : coronary artery disease, tobacco history() , hypertension, dyslipidemia. INDICATION The indication(s) include : non-STEMI Trop of 3.8. [facility] Clinical Frailty Scale [facility] Clinical Frailty Scale: Moderately Frail Heart Failure Heart Failure: Yes If Yes, Newly Diagnosed: No If Yes, HF Type: Diastolic If Yes, NYHA Class: Class III PROCEDURE NARRATIVE After explaining the risks and benefits of the procedure and alternatives, informed consent was obtai cee. The patient was brought electively to the cardiac catheterization lab in a fasting state. A babar eout was performed confirming the patient's name, date of , procedure, and site of procedure. A ll necessary personnel were wearing the appropriate protective equipment and radiation monitor device s. (See nursing notes for medications administered). The right groin was sterilely prepped and drap ed in the usual fashion. The right groin was infiltrated with 10 mL of 2% lidocaine for subcutaneous anesthesia. A 6 F sheath was inserted into the right femoral artery without difficulty. Left wray ry angiography was performed using a JL4 catheter. Bypass angiography was performed with a JR4 cathet er. Left ventricular end diastolic pressure was obtained with a JR4 catheter and pullback was perform ed. All catheter exchanges and advancements were performed over a guidewire. At case completion the right femoral sheath was removed and hemostasis was achieved with an Angioseal Device after limited femoral angiography confirmed adequate vessel size and anatomy. There were no acute complications. HEMODYNAMICS: AO: 128/78 LVEDP 5 mm Hg No gradient on LV to aortic pullback. LEFT VENTRICULOGRAM: Deferred. CORONARY ANGIOGRAPHY: LM is a large caliber vessel with normal angiographic appearance. LAD is a large caliber vessel with a proximal 40% stenosis. D1 is a moderate caliber vessel with mild luminal irregularities. LCx is a moderate caliber non-dominant vessel with a proximal 100% occlusion. The mid LCx reconstitut es just prior to the OM1 and is seen to fill via the SVG to OM1 graft. OM1 is a moderate caliber vessel with a proximal 80% stenosis. The mid and distal vessel is seen to f ill via a patent SVG. RCA is a moderate caliber vessel with proximal 100% occlusion. There are robust right to right and le ft to right colllaterals. BYPASS ANGIOGRAPHY: GAINES to LAD was not injected as it was previously known to be severely atretic. SVG to OM1 is widely patent without anastomotic stenosis. Previous cath did not reveal a right sided graft. Conclusion 1. Normal left sided filling pressures. 2. Severe three vessel coronary disease. 3. Patent SVG to OM1. 4. Troponin elevation likely due to Type 2 MT Recommendations Smoking Cessation Aggressive Medical Therapy Signed by : Theodore Zavala, Electronically Approved : 03/23/2019 14:38:36
[2019-03-23] MEDS ORDERED: MORPHINE SULFATE 2 MG/ML VIAL. IV PRN (16:00)
[2019-03-23] MEDS: cefTRIAXone IV Push 1 GM VIAL. IVP SCH (17:40)
--- NOTE | 2019-03-23 19:15 | NUR ---
pat in bed assessment completed vss poc explained will resume care and continue to monitor pt. Call light in reach.
[2019-03-23] MEDS: ATORVASTATIN CALCIUM 10 MG TABLET. PO SCH (20:44)
[2019-03-23] MEDS ORDERED: ALBUTEROL SULFATE 2.5 MG/3 ML NEBU. NEB PRN (23:00)
[2019-03-24 03:05] VITALS: BP 139/55
[2019-03-24 04:28] LABS: PROTHROMBIN TIME PATIENT 13.2 SEC (11.7-14.0)
[2019-03-24 04:29] LABS: HEMATOCRIT 44.6 % (36.0-47.0); HEMOGLOBIN 14.8 g/dL (12.0-15.5); RED BLOOD COUNT 5.16 x10^6/uL (3.50-5.40); RED CELL DISTRIBUTION WIDTH 14.5 % (11.5-14.5); WHITE BLOOD COUNT 8.3 x10^3/uL (4.0-11.0)
[2019-03-24 07:00] VITALS: BP 136/63
[2019-03-24] MEDS: IPRATRPIUM/ALBUTEROL 0.5/2.5MG 3 ML NEBU. NEB SCH ×3 (07:59→15:35)
[2019-03-24] MEDS: BUDESONIDE 0.5 MG/2 ML NEBU. NEB SCH (07:59)
[2019-03-24] MEDS: CALCIUM CARBONATE 500 MG TABLET PO SCH (09:32)
[2019-03-24] MEDS: GABAPENTIN 100 MG CAPSULE. PO SCH (09:32)
[2019-03-24] MEDS: CARVEDILOL 3.125 MG TABLET. PO SCH (09:32)
[2019-03-24] MEDS: LACTOBACILLUS RHAMNOSUS GG 1 CAPSULE. PO SCH (09:32)
[2019-03-24] MEDS: ASPIRIN ENTERIC COATED 81 MG TABLET.DR. PO SCH (09:32)
[2019-03-24] MEDS: CHOLECALCIFEROL (VITAMIN D3) 1,000 UNIT TABLET PO SCH (09:32)
[2019-03-24] MEDS: LISINOPRIL 5 MG TABLET. PO SCH (09:33)
[2019-03-24 11:00] VITALS: BP 121/55
--- NOTE | 2019-03-24 11:54 | PDOC ---
[facility] PROGRESS NOTE Chief Complaint Chief Complaint Day 1 post-op Cardiac Cath Severe 3 Vessel CAD NSTEMI A-fib w/RVR, resolved VT HTN HLD UTI History of Present Illness History of Present Illness 03/24/19 Pt seen and examined DW pt regarding her care KAUSHIK RN regarding pt's care Reviewed pt's chart Vitals/I&O Vitals/I&O: Vital Signs Date Time Temp Pulse Resp B/P (MAP) Pulse Ox O2 Delivery O2 Flow Rate FiO2 03/24/19 11:29 94 Nasal Cannula 2.0 03/24/19 11:00 97.4 57 18 121/55 (77) 97.4 I & O 03/23/19 03/23/19 03/24/19 15:00 23:00 07:00 Intake Total 500 ml 200 ml Output Total 550 ml 1350 ml 650 ml Balance -550 ml -850 ml -450 ml Physical Exam General: Alert, Oriented X3, Cooperative, No acute distress Heart: Normal S1, Normal S2 Lungs: Wheezing Abdomen: Normal bowel sounds, Soft Extremities: No clubbing, No cyanosis, No edema, Normal pulses, No tenderness/swelling Skin: No rashes, No breakdown, No significant lesion Labs Labs: Laboratory Tests Test 03/24/19 04:00 White Blood Count 8.3 x10^3/uL (4.0-11.0) Red Blood Count 5.16 x10^6/uL (3.50-5.40) Hemoglobin 14.8 g/dL (12.0-15.5) Hematocrit 44.6 % (36.0-47.0) Mean Corpuscular Volume 87 fL (79-100) Mean Corpuscular Hemoglobin 29 pg (25-35) Mean Corpuscular Hemoglobin Concent 33 g/dL (31-37) Red Cell Distribution Width 14.5 % (11.5-14.5) Platelet Count 195 x10^3/uL (140-400) Prothrombin Time 13.2 SEC (11.7-14.0) Prothromb Time International Ratio 1.0 (0.8-1.1) Review of Systems Review of Systems: No c/o headache No c/o N/V/D Assessment and Plan Assessmemt and Plan Assessment Day 1 post-op Cardiac Cath Severe 3 Vessel CAD NSTEMI A-fib w/RVR, resolved VT HTN HLD UTI Plan Cardiac Monitoring Labs Home meds DVT prophylaxis PT/OT D/c when okay with cardiology Comment Review of Relevant I have reviewed the following items fernando (where applicable) has been applied. Medications: Current Medications Medications (Trade) Dose Ordered Sig/Singh Route PRN Reason Start Time Stop Time Status Last Admin Dose Admin Heparin Sodium/ Sodium Chloride (HEPARIN for ARTERIAL LINE FLUSH) 1,000 unit 1X ONCE IART 03/23/19 13:45 03/23/19 13:46 DC 03/23/19 14:04 Heparin Sodium/ Sodium Chloride (HEPARIN for ARTERIAL LINE FLUSH) 1,000 unit 1X ONCE IART 03/23/19 13:45 03/23/19 13:46 DC 03/23/19 14:04 Midazolam HCl (Versed) 2 mg 1X ONCE IV 03/23/19 13:45 03/23/19 13:46 DC 03/23/19 14:05 Fentanyl Citrate (Fentanyl 2ml Vial) 100 mcg 1X ONCE IV 03/23/19 13:45 03/23/19 13:46 DC 03/23/19 14:05 Iohexol (Omnipaque 300 Mg/ml) 100 ml 1X ONCE IART 03/23/19 13:45 03/23/19 13:46 DC 03/23/19 14:04 Lidocaine HCl (Lidocaine 1% 20ml Vial) 20 ml 1X ONCE INJ 03/23/19 13:45 03/23/19 13:46 DC 03/23/19 14:04 Morphine Sulfate (Morphine Sulfate) 2 mg PRN Q2HR PRN IV PAIN 03/23/19 16:00 03/23/19 16:13 SUE BURGESS III DO Mar 24, 2019 11:54
[2019-03-24] MEDS ORDERED: LISI-338 PO (12:30)
--- NOTE | 2019-03-24 13:04 | NUR ---
Pharmacy Warfarin Dosing Note S:Pharmacy consulted to assist with anticoagulation therapy started with target INR: 2 -3 O:JASPAL BROOKS is a 78 year old F with Atrial Fibrillation s/Post NSTEMI LABS: Last INR: 1 Last HGB: 14.8 Last HCT: 44.6 Last PLT: 195 Last dose of Hold given on 03/23/19 at 1705 Previous Regimen: NA Vitamin K given: N Drug Interaction Changes: Same Interacting Drug Ongoing Drug Interactions: ASA, Atorvastatin, Ceftriaxone A:INR of 1 is below desired range. Target range for this patient is: 2 -3 P: Warfarin dose: 6 mg Today at 1600 Bridge Therapy: Heparin Therapeutic CONT Next INR due 03/25/19 Pharmacy anticoagulation service will continue to follow. LAMBERT LEARY, [facility], 03/24/19 [id number]
--- NOTE | 2019-03-24 13:12 | PDOC ---
TERRY HOWE SKIP TENDER 03/24/19 1312: CARDIO Progress Notes Date and Time Date of Service 03/24/2019 Time of Evaluation 1140 Subjective Subjective: No Chest Pain, No shortness of breath, No Palpitations, Other (fell better today) Vitals Vitals Vital Signs Date Time Temp Pulse Resp B/P (MAP) Pulse Ox O2 Delivery O2 Flow Rate FiO2 03/24/19 11:29 94 Nasal Cannula 2.0 03/24/19 11:00 97.4 57 18 121/55 (77) 97.4 Weight Weight [ ] Input and Output Intake and Output Intake and Output 03/24/19 07:00 Intake Total 700 ml Output Total 2550 ml Balance -1850 ml Intake Oral 700 ml Output Urine Total 2550 ml Laboratory Labs Laboratory Tests Test 03/24/19 04:00 White Blood Count 8.3 x10^3/uL (4.0-11.0) Red Blood Count 5.16 x10^6/uL (3.50-5.40) Hemoglobin 14.8 g/dL (12.0-15.5) Hematocrit 44.6 % (36.0-47.0) Mean Corpuscular Volume 87 fL (79-100) Mean Corpuscular Hemoglobin 29 pg (25-35) Mean Corpuscular Hemoglobin Concent 33 g/dL (31-37) Red Cell Distribution Width 14.5 % (11.5-14.5) Platelet Count 195 x10^3/uL (140-400) Prothrombin Time 13.2 SEC (11.7-14.0) Prothromb Time International Ratio 1.0 (0.8-1.1) Physical Exam HEENT: Neck Supple W Full Motion Chest: Symmetric LUNGS: Clear to Auscultation Heart: S1S2, RRR (SR) Abdomen: Soft N/T Extremities: No Calf Tenderness Neurology: alert, oriented, follow commands Other Exams right groin arteriotomy site intact, no erythema, no swelling, neurovascular status to bilateral LE intact Assessment Assessment 1. NSTEMI: Peaked trop 3.8 S/P LHC noted with patent stent SVG to OM1. LAD with 40% lesion and occluded RCA with collaterals 2. CAD: past CABG 3. PAFIB: new onset x1 episode, now SR/SB lowest in the 40s no pauses. EF nml 4. HTN: controlled 5. HLP 6. UTI: Abx per PCP Recommendations 1. Elevated trop possibly precipitated by RVR with known CAD. ASA. No anticoagulation for now 2. MCOT to further guide therapy and note burden for further consideration for anticoagulation 3. lipid panel and optimize statin per level 4. Continue with coreg and lisinopril. 5. Follow up in office as scheduled KALEY SINCLAIR MD 03/25/19 0620: CARDIO Progress Notes Plan Plan Late entry for 03/24/2019 Patient seen and examined. Agree with above nurse practitioner note. TERRY HOWE SKIP TENDER Mar 24, 2019 13:12 KALEY SINCLAIR MD Mar 25, 2019 06:20
--- NOTE | 2019-03-24 13:14 | NUR ---
SW following. RN advised pt is not needing oxygen upon discharge. Discharge orders for home health. Vinita Tamez RN met with pt, pt agreeable to [facility]. Orders and clinical faxed by Vinita. Kennedi to discharge home with [facility].
[2019-03-24] MEDS ORDERED: AMOX1TAB58 PO (13:51)
--- NOTE | 2019-03-24 14:48 | SNU/HH DC ---
DISCHARGE WITH HOME HEALTH DISCHARGE INFORMATION: Condition on Discharge: Stable CODE STATUS: Code Status: Full HOME HEALTH: Face to Face: I certify this patient is under my care and that I, or a nurse practitioner or physician's phlebotomist lab assistant working with me, had a face to face encounter that meets the physician face to face encounter requirements with this patient on []. Medical Complications: Other (atrial fibrillation and debility) Nursing Home For: Assess & Educate Safety RN For Eval/Treatment: Yes Physical Therapy For: Evalulation/Treatment Occupational Therapy For: Evaluation/Treatment Home Health Aide For: Self-care SUPERVISOR CARDING For: Community Resources Pt Meets Homebound Status: Poor coordination w/ amb. POST DISCHARGE ORDERS: Activity Instructions for Disc: Other, see below Weight Bearing Status after Di: Other, see below Bathing Instructions: No Tub Bath until see DIET AFTER DISCHARGE: Cardiac Wound/Incision Care: Keep wound/cast CDI Other wound/incision instructi: Keep incision dry. Remove dressing 03/25. CHECKS AFTER DISCHARGE: Checks after discharge: Check blood press - daily FOLLOW-UP: Follow up with: Dr. Zavala on 05/22/18 at 10:00 am Follow Up With: Primary Care Physician in 1-2 weeks TREATMENT/EQUIPMENT ORDERS: Adaptive Equipment Issued: None CERTIFICATION STATEMENT: Certification Statement: Certification Statement: Based on the above finding, I certify that this patient is confined to the home and needs intermittent long term care, physical therapy and/or speech therapy, or continues to need occupational therapy.~ This patient is under my care, and I have initiated the establishment of the plan of care.~ This patient will be followed by myself or a community physician who will periodically review the plan of care. Home Meds Reported Medications Amoxicillin/Potassium Clav (AUGMENTIN 500-125 TABLET) 1 Each Tablet, 1 TAB PO BID for Infection for 5 Days, #10 TAB 0 Refills 03/24/19 Lisinopril (LISINOPRIL) 5 Mg Tablet, 1 TAB PO DAILY for High Blood Pressure, #90 TAB 3 Refills 03/24/19 Fluticasone/Salmeterol (ADVAIR 250-50 DISKUS) 1 Each Disk.w.dev, 250 BID for MDD 1 03/21/19 Albuterol Sulfate (PROAIR HFA INHALER) 8.5 Gm Hfa.aer.ad, 1 PUFF INH PRN Q6HRS PRN for SHORTNESS OF BREATH 12/04/18 Gabapentin (GABAPENTIN) 600 Mg Tablet, 600 MG PO TID for neuropathy/PVD 10/17/16 Calcium Carbonate (CALCIUM) 500 Mg Tablet, 500 MG PO DAILY for supplement 08/23/15 Cholecalciferol (Vitamin D3) (VITAMIN D) 1,000 Unit Capsule, 1 CAP PO DAILY for supplement 08/23/15 Aspirin (ASPIR 81) 81 Mg Tablet.dr, 1 TAB PO DAILY for heart health 08/23/15 Carvedilol (CARVEDILOL ) 3.125 Mg Tablet, 1 TAB PO BID for HTN/CAD 08/23/15 Simvastatin (SIMVASTATIN) 20 Mg Tablet, 1 TAB PO QHS for HLD 08/23/15 Discontinued Reported Medications Prednisone (PREDNISONE) 20 Mg Tablet, 20 for 03/21/19 SUE BURGESS III DO Mar 24, 2019 14:48
[2019-03-24 15:00] VITALS: BP 150/74
[2019-03-24 15:39] LABS: CHOLESTEROL/HDL RATIO 2.6
[2019-03-24] MEDS ORDERED: WARFARIN 3 MG TABLET. PO ONE (16:00)
[2019-03-24] MEDS ORDERED: SIMV40TA18 PO ×2 (16:02→16:03)
--- NOTE | 2019-03-24 16:32 | NUR ---
Discharge Note: JASPAL BROOKS [address] Discharge instructions and discharge home medications reviewed with Patient and her daughter in law as well as her daughter via phone. A copy given to them along with extensive teaching related to new meds and plan of care afterwards. All questions have been answered and understanding verbalized.
[2019-03-25] MEDS ORDERED: ASPIRIN ENTERIC COATED 81 MG TABLET.DR. PO SCH (08:00)
== END 2019-03-24 16:35 | disposition home or self-care (01) | DRG 280 ==
LOC: ER 03:14 → 2 SOUTH 04:27
PROVIDERS: ADMIT Internal Medicine; ATTEND Internal Medicine
PROC: 4A023N7 Measurement of Cardiac Sampling and Pressure, Left Heart, Percutaneous Approach (ICD-10-PCS; principal; 2019-03-23)
PROC: B2111ZZ Fluoroscopy of Multiple Coronary Arteries using Low Osmolar Contrast (ICD-10-PCS; 2019-03-23)
PROC: B2131ZZ Fluoroscopy of Multiple Coronary Artery Bypass Grafts using Low Osmolar Contrast (ICD-10-PCS; 2019-03-23)
PROC: B2121ZZ Fluoroscopy of Single Coronary Artery Bypass Graft using Low Osmolar Contrast (ICD-10-PCS; 2019-03-23)
DX: I21.4 Non-ST elevation (NSTEMI) myocardial infarction (principal); N17.0 Acute kidney failure with tubular necrosis; N39.0 Urinary tract infection, site not specified; I48.91 Unspecified atrial fibrillation; E78.00 Pure hypercholesterolemia, unspecified; I25.10 Atherosclerotic heart disease of native coronary artery without angina pectoris; E78.5 Hyperlipidemia, unspecified; R73.9 Hyperglycemia, unspecified; H92.09 Otalgia, unspecified ear; I11.0 Hypertensive heart disease with heart failure; I50.9 Heart failure, unspecified; Z79.01 Long term (current) use of anticoagulants; Z95.1 Presence of aortocoronary bypass graft; Z82.49 Family history of ischemic heart disease and other diseases of the circulatory system
CPT/HCPCS: 93459; 96365; 96375; 96376; 99285; G0269; 36415; 71045; 80048; 80053; 80061; 81001; 83036; 83735; 83880; 84443; 84484; 85025; 85027; 85379; 85520; 85610; 87086; 93005; 93306; 94618; 94640; 94760; 99152; 99153; C1760; C1769; C1892; J0696; J1160; J1644; J2250; J2270; J3010; J3490; J7030; J7613; J7620; J7626; Q9967; C1771; G0378

== ENCOUNTER → 2020-07-01 | Outpatient (CLI) | payer MEDICARE ==
[2019-07-29 15:20] VITALS: BP 121/74
[~2020-07-01] MED LIST changes: +AMIO200T6 PO; +AMOX1TAB58 PO; +FLUT1DIS3; +LISI-517 PO; +PRED20TA; +SIMV40TA18 PO
--- NOTE | 2020-07-03 08:53 | RAD ---
STUDY: CT chest without contrast INDICATION: Lung cancer. COMPARISON: Most recent exams from 07/28/2019 and 12/03/2018 TECHNIQUE: Helical CT imaging of the chest performed without the use of intravenous contrast. Sagitta l and coronal reformats were obtained. One or more of the following individualized dose reduction techniques were utilized for this examinat ion: 1. Automated exposure control 2. Adjustment of the mA and/or kV according to patient size 3. Use of iterative reconstruction technique. FINDINGS: Vasculature: Extensive calcific atherosclerosis to include trivessel coronary artery involvement. The patient is status post coronary artery bypass grafting. The aorta is nonaneurysmal. Unchanged calibe r of the central pulmonary arteries. Mediastinum/enriqueta: No newly seen abnormality of the esophagus no enlarging mediastinal or hilar lymph nodes. No pericardial effusion. Lungs: Noting slight differences in slice angulation, a masslike opacity at the right lung apex is no t significantly changed. On image 11 series 3, the opacity measures 4.1 cm transverse by 2.6 cm AP. E mphysema with multifocal pleuroparenchymal scarring. No newly seen or enlarging nodule. Trace debris within the right bronchus intermedius, image 32 series 3. Small amount of mucus plugging within small airways to the lower lobes. Neck/axilla/chest wall: Right thyroid lobe nodule with some associated mineralization has not appreci ably changed in size. No axillary adenopathy. Bones: Partially imaged anterior fusion construct seen from C6 through T1. No change in vertebral bod y height. Degenerative changes at the shoulders slightly greater on the left. Upper abdomen: Unchanged morphology of the partially imaged adrenal glands. The spleen is within norm al limits for size. IMPRESSION: 1. Apical masslike opacity has not appreciably changed in size from 07/28/2019 measuring 4.1 x 2.6 cm on image 11 series 3. No newly seen or enlarging pulmonary nodule on the right or left. Unchanged me diastinal and hilar lymph nodes. 2. Additional chronic findings with no significant interval change detailed in the body the report. Electronically signed by: CINDY DUMONT MD (07/03/2020 8:51 AM) [facility]
== END ==
LOC: CT 13:46
PROVIDERS: ATTEND Internal Medicine Pulmonary Disease
DX: C34.90 Malignant neoplasm of unspecified part of unspecified bronchus or lung (principal); T17.890A Other foreign object in other parts of respiratory tract causing asphyxiation, initial encounter; I25.10 Atherosclerotic heart disease of native coronary artery without angina pectoris; X58.XXXA Exposure to other specified factors, initial encounter; Y93.89 Activity, other specified; Y92.89 Other specified places as the place of occurrence of the external cause; Y99.8 Other external cause status
CPT/HCPCS: 71250

== ENCOUNTER → 2021-06-14 | Outpatient (CLI) | payer MEDICARE ==
[2019-07-29 15:20] VITALS: BP 121/74
[~2021-06-14] MED LIST changes: +AMIO200T53 PO; -AMIO200T6 PO; -LISI-517 PO; +LISI5TAB15 PO
--- NOTE | 2021-06-14 15:38 | RAD ---
PQRS Compliance Statement: One or more of the following individualized dose reduction techniques were utilized for this examinat ion: 1. Automated exposure control 2. Adjustment of the mA and/or kV according to patient size 3. Use of iterative reconstruction technique CT THORAX WO Clinical Indication: Reason: LUNG CA / Spl. Instructions: / History: Comparison: CT chest without contrast July 01, 2020. TECHNIQUE: Helical CT imaging of the chest is performed without IV contrast. Findings: There is coronary artery disease and CABG changes. Ectasia of the ascending thoracic aorta, diameter 3.9 cm. Atherosclerotic aortic arch. There is stenosis of the proximal left common carotid artery and the left subclavian artery due to calcification. Mediastinal lymph nodes are stable. Cardiac size is normal, no pericardial effusion. There are probable retained secretions or mucous in the trachea, linearly oriented and not seen previ ously. There is moderate emphysema. Irregular masslike opacity of the right lung apex is unchanged as seen on coronal image 49. Minimal scarring in the left lower lobe is unchanged. No new pulmonary nod ule is seen. Left adrenal gland hyperplasia is unchanged. There is ACDF hardware, also involving T1. No bone lesio n is seen. IMPRESSION: 1. Irregular masslike opacity of the right lung apex is unchanged. 2. Moderate emphysema. Electronically signed by: Eldon Marsh MD (06/14/2021 3:36 PM) [id number]
== END ==
LOC: CT 12:38
PROVIDERS: ATTEND Internal Medicine Pulmonary Disease
DX: C34.90 Malignant neoplasm of unspecified part of unspecified bronchus or lung (principal); R91.8 Other nonspecific abnormal finding of lung field; J43.9 Emphysema, unspecified; I70.0 Atherosclerosis of aorta; I77.810 Thoracic aortic ectasia; I65.22 Occlusion and stenosis of left carotid artery; E27.8 Other specified disorders of adrenal gland; Z98.1 Arthrodesis status; Z95.1 Presence of aortocoronary bypass graft; F17.200 Nicotine dependence, unspecified, uncomplicated
CPT/HCPCS: 71250